=== PATIENT | male | born 1940 | race Caucasian/White ===

== ENCOUNTER 2021-03-05 08:21 | Inpatient (IN) | payer MEDICARE, BC ==
[2021-03-05] MEDS ORDERED: 50% Dextrose in Water 50 ML Syringe IVPUSH PRN (17:04)
[2021-03-05] MEDS ORDERED: oxyCODONE 5 MG Tab PO PRN (17:04)
[2021-03-05] MEDS ORDERED: Glucagon,Human Recombinant 1 MG Vial IM PRN (17:04)
[2021-03-05] MEDS ORDERED: Lactulose Soln 10 GM/15 ML 30 ML UD Cup PO PRN (17:20)
[2021-03-05] MEDS ORDERED: Insulin Aspart 100 Units/ML 3 ML Pen SUBCUT SCH (17:30)
--- NOTE | 2021-03-05 18:00 | PCM.HP.2 ---
H&P History of Present Illness - General Date of Service: 03/05/21 Admit Problem/Dx: Admission Diagnosis/Problem Admission Diagnosis/Problem Weakness Source of Information: Patient, Family, Old Records, Provider History Limitations: Reports: Altered Mental Status (some confusion but family report improved) - History of Present Illness Initial Comments - Free Text/Narative: Ed presents for swing bed admission for deconditioning and weakness after prolonged hospitalization in [facility] in [place]. 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 He also had acute kidney injury(SHAYNA)-resolved, Decompensated cirrhosis, hepatic encephalopathy- improved, acute liver injury, hyponatremia, incision infection completed antibiotic course, hypertension, possible Parkinson's disease; hyperkalemia resolved, Maculopapular rash resolved, dermatology felt was drug eruption secondary to antibiotics, TMC cream bid to affected areas, Bowel ischemia resolved. Hematology did full workup for Factor V Leiden, Antiphospholipid syndrome antibodies, Myeloproliferative panel and all tests came back negative. He has been treated for SMA thrombosis with Warfarin 4 mg daily, INR today was 2.6, 03/04 INR was 2.4. Pharmacy was dosing to keep INR goal between 2-3. He was given Rifaximin 550 mg bid in addition to Lactulose 20 g tid as needed titrating to keep 3 BM/day. His cognition improved with this and has not had ammonia level for over a week due to improved mental status. He did not have paracentesis for ascites while at [facility] as he had open abdominal incision and drain tube in place, they were getting large amounts of drainage out and drain was pulled 02/28 and then ostomy bag was placed to collect drainage, this was discontinued 03/04 and has had minimal drainage since bag removed. General surgery recommended follow up with our general surgery if needed for therapeutic paracentesis if his abdomen becomes more distended and painful. Wound care: midline abdomen open wounds x 2, Pack with saline moistened Kerlix & then cover with gauze. LUQ drain site: dressing gauze. Lifting restrictions of 15 pounds until 03/27/2021. His daughter lives in [place] so family had requested swing bed here and plan is for him to return to [place], [place] to his home once improved functional status. He is to Follow up with Dr Olmedo at in [place] on 03/12 at 11am. - Related Data Allergies/Adverse Reactions: Allergies Allergy/AdvReac Type Severity Reaction Status Date / Time Penicillins Allergy Other Verified 03/05/21 16:31 Home Medications: Home Meds Albuterol/Ipratropium [DuoNeb 3.0-0.5 MG/3 ML] 3 ml NEB Q4H 03/05/21 [History] Carbidopa/Levodopa [Sinemet 25-250 MG] 1 tab PO TID 03/05/21 [History] Docusate Sodium/Sennosides [Senokot-S] 2 each PO BID 03/05/21 [History] Furosemide [Lasix] 20 mg PO DAILY 03/05/21 [History] Insulin Aspart [Novolog Flexpen] 0 unit SQ TIDAC 03/05/21 [History] Insulin Glarg,Human.Rec.Analog [Lantus Solostar] 60 unit SUBCUT Q24H 03/05/21 [History] Lactulose [Kristalose] 20 gm PO TID PRN 03/05/21 [History] Multivitamins/Min/Ca/FA/Iron [Thera-M] 1 each PO DAILY 03/05/21 [History] Nystatin 1 applic TOP BID 03/05/21 [History] Pantoprazole Sodium [Protonix] 40 mg PO DAILY 03/05/21 [History] Rifaximin [Xifaxan] 550 mg PO BID 03/05/21 [History] Simvastatin 40 mg PO BEDTIME 03/05/21 [History] Tamsulosin [Tamsulosin 24 Hr] 0.4 mg PO PCBREAKFAST 03/05/21 [History] Triamcinolone Acetonide [Triamcinolone Acetonide 0.1% Oint] 15 gm .XX ASDIRECTED PRN 03/05/21 [History] Warfarin [Coumadin] 4 mg PO DAILY@1600 03/05/21 [History] diphenhydrAMINE [Benadryl] 25 mg PO QID 03/05/21 [History] lisinopriL [Lisinopril] 2.5 mg PO DAILY 03/05/21 [History] metFORMIN [Glucophage] 1,000 mg PO WITHDINNER 03/05/21 [History] oxyCODONE 2.5 mg PO BID PRN 03/05/21 [History] Past Medical History Respiratory History: Reports: COPD Neurological History: Reports: Parkinson's Endocrine/Metabolic History: Reports: Diabetes, Type II, Obesity/BMI 30+ - Past Surgical History Cardiovascular Surgical History: Reports: Other (See Below) Other Cardiovascular Surgeries/Procedures: had superior messenteric vein thrombosis H&P Review of Systems - Review of Systems: Review Of Systems: See Below General: Reports: Weakness. Denies: Fever, Chills HEENT: Reports: No Symptoms Pulmonary: Reports: No Symptoms Cardiovascular: Reports: No Symptoms Gastrointestinal: Reports: Abdominal Pain (mild on left side), Diarrhea, Distension, Flatus. Denies: Nausea, Vomiting Genitourinary: Reports: No Symptoms Musculoskeletal: Reports: No Symptoms Skin: Reports: Rash (improving). Denies: Jaundice Psychiatric: Reports: Confusion (mild) Neurological: Reports: Difficulty Walking, Weakness Hematologic/Lymphatic: Reports: Easy Bleeding, Easy Bruising Immunologic: Reports: Other (Drug eruption rash while at [facility]) Exam - Exam Exam: See Below - Vital Signs Vital Signs: Last Vital Signs Temp 97.8 F 03/05/21 15:48 Pulse 94 03/05/21 15:48 Resp 18 03/05/21 15:48 BP 130/46 L 03/05/21 15:48 Pulse Ox 94 L 03/05/21 15:48 Weight: 192 lb 4.8 oz - Exam General: Alert, Oriented (x3, slow to answer some questions, pleasant.), Cooperative HEENT: PERRLA, Conjunctiva Clear, EOMI, Hearing Intact, Mucosa Moist & [place]. No: Scleral Icterus Neck: Trachea Midline Lungs: Clear to Auscultation, Normal Respiratory Effort Cardiovascular: Regular Rate, Regular Rhythm GI/Abdominal Exam: Normal Bowel Sounds, Soft, Distended, Guarding, Tender (mild LUQ), Other (ABD dressing to midline incision & LUQ drain site, incision with [address] to RUQ ). No: Rigid, Rebound (Male) Exam: Deferred Rectal (Males) Exam: Deferred Extremities: Pedal Edema (1+ BLE). No: Mottled Peripheral Pulses: 1+: Posterior Tibial (L), Posterior Tibial (R), Dorsalis Pedis (L), Dorsalis Pedis (R), 2+: Radial (L), Radial (R) Skin: Warm, Dry, Intact. No: Rash Neurological: Cranial Nerves Intact, Strength Equal Bilateral, Normal Speech, Sensation Intact - Patient Data Lab Results Last 24 hrs: see outside medical records Sepsis Event Note - Focused Exam Vital Signs: Vital Signs Temp Pulse Resp BP Pulse Ox 03/05/21 15:48 97.8 F 94 18 130/46 L 94 L *Q Meaningful Use (ADM) - VTE *Q VTE Mechanical Contraindications *Q: At Risk for Falls - VTE Risk Assess *Q Each Risk Factor Represents 1 Point: History of prior major surgery less than 1 month, Swollen Legs, Current, Obesity ( BMI > 25 kg/m2) Total Score 1 Point Risk Factors: 3 Each Risk Factor Represents 2 Points: None Total Score 2 Point Risk Factors: 0 Each Risk Factor Represents 3 Points: Age 75 Years or Greater Other Thrombophilia Type: SMA thrombosis Total Score 3 Point Risk Factors: 3 - Problem List (1) Malnutrition SNOMED Code(s): 88871331 ICD Code: E46 - UNSPECIFIED PROTEIN-CALORIE MALNUTRITION Status: Acute Current Visit: Yes (2) Weakness SNOMED Code(s): 53778049 ICD Code: R53.1 - WEAKNESS Status: Acute Current Visit: Yes (3) Superior mesenteric artery thrombosis SNOMED Code(s): 739164266 ICD Code: K55.069 - ACUTE INFARCTION OF INTESTINE, PART AND EXTENT UNSPECIFIED Status: Acute Current Visit: Yes Onset Date: ~02/06/21 (4) S/P exploratory laparotomy SNOMED Code(s): 727505788, 49976246, 952048018 ICD Code: Z98.890 - OTHER SPECIFIED POSTPROCEDURAL STATES Status: Acute Current Visit: Yes Onset Date: ~02/08/21 Problem Details: 02/07 & 02/08 removed 100 cm of jejunum due to ischemia (5) S/P small bowel resection SNOMED Code(s): 781293708931752, 891876987, 221894083525404 ICD Code: Z90.49 - ACQUIRED ABSENCE OF OTHER SPECIFIED PARTS OF DIGESTIVE TRACT Status: Acute Current Visit: Yes Problem Details: 100 cm of jejunum removed secondary to ischemia (6) Ascites SNOMED Code(s): 269691882 ICD Code: R18.8 - OTHER ASCITES Status: Chronic Current Visit: Yes (7) Hepatic encephalopathy syndrome SNOMED Code(s): 33090616 ICD Code: K72.90 - HEPATIC FAILURE, UNSPECIFIED WITHOUT COMA Status: Chronic Current Visit: Yes (8) Decompensation of cirrhosis of liver SNOMED Code(s): 923083691 ICD Code: K72.90 - HEPATIC FAILURE, UNSPECIFIED WITHOUT COMA; K74.60 - UNSPECIFIED CIRRHOSIS OF LIVER Status: Chronic Current Visit: Yes (9) Parkinson disease SNOMED Code(s): 33276251 ICD Code: G20 - PARKINSON'S DISEASE Status: Suspected Current Visit: Yes (10) Hypertension SNOMED Code(s): 52684527 ICD Code: I10 - ESSENTIAL (PRIMARY) HYPERTENSION Status: Chronic Current Visit: Yes (11) Diabetes SNOMED Code(s): 20886247 ICD Code: E11.9 - TYPE 2 DIABETES MELLITUS WITHOUT COMPLICATIONS Status: Chronic Current Visit: Yes Qualifiers: Diabetes mellitus type: type 2 Diabetes mellitus senior care insulin use: with superintendent container terminal use Problem List Initiated/Reviewed/Updated: Yes Orders Last 24hrs: Active Orders 24 hr Category Date Time Status Patient Status [ADT] Routine ADT 03/05/21 15:48 Active Antiembolic Devices [RC] .Routine Care 03/05/21 17:09 Active Blood Glucose Check, Bedside [RC] QIDACANDBED Care 03/05/21 17:04 Active Height and Weight [RC] WEEKLY Care 03/05/21 15:48 Active Oxygen Therapy [RC] PRN Care 03/05/21 15:48 Active RT Aerosol Therapy [RC] ASDIRECTED Care 03/05/21 17:08 Active Up With Assistance [RC] ASDIRECTED Care 03/05/21 15:48 Active Up to Chair [RC] ASDIRECTED Care 03/05/21 15:48 Active VTE/DVT Education [RC] Per Unit Routine Care 03/05/21 15:48 Active Vaccine to be Administered/Admin Charge [RC] ASDIRECTED Care 03/05/21 17:39 Active Vital Signs [RC] PER UNIT ROUTINE Care 03/05/21 15:48 Active Wound Care [RC] DAILY Care 03/05/21 15:48 Active OT Evaluation and Treatment [CONS] Routine Cons 03/05/21 15:48 Active PT Evaluation and Treatment [CONS] Routine Cons 03/05/21 15:48 Active 2 Gram Sodium Diet [DIET] Diet 03/05/21 Dinner Active INR,PT,PROTHROMBIN TIME [COAG] DAILY Lab 03/06/21 06:00 Ordered INR,PT,PROTHROMBIN TIME [COAG] DAILY Lab 03/07/21 06:00 Ordered INR,PT,PROTHROMBIN TIME [COAG] DAILY Lab 03/08/21 06:00 Ordered INR,PT,PROTHROMBIN TIME [COAG] DAILY Lab 03/09/21 06:00 Ordered INR,PT,PROTHROMBIN TIME [COAG] DAILY Lab 03/10/21 06:00 Ordered INR,PT,PROTHROMBIN TIME [COAG] DAILY Lab 03/11/21 06:00 Ordered Albuterol/Ipratropium [DuoNeb 3.0-0.5 MG/3 ML] Med 03/05/21 17:15 Active 3 ml NEB Q4H Carbidopa/Levodopa [Sinemet 25-250 mg] Med 03/05/21 21:00 Active 1 tab PO TID Dextrose 50% in Water Med 03/05/21 17:04 Active 50 ml IVPUSH ASDIRECTED PRN Docusate Sodium/Sennosides [Senna Plus] Med 03/05/21 17:04 Active 2 tab PO BID PRN Furosemide [Lasix] Med 03/06/21 09:00 Active 20 mg PO DAILY Glucagon,Human Recombinant [GlucaGen] Med 03/05/21 17:04 Active 1 mg IM ASDIRECTED PRN Insulin Glarg,Human.Rec.Analog [LantUS Solostar] Med 03/06/21 14:00 Active 60 units SUBCUT Q24H Insulin Lispro [HumaLOG] Med 03/05/21 17:30 Active 0 unit SUBCUT TIDAC Insulin Lispro [HumaLOG] Med 03/05/21 21:00 Active See Protocol SUBCUT BEDTIME Lactulose [Cephulac] Med 03/05/21 17:20 Active 20 gm PO TID PRN Multivitamins w-Iron/Ca/FA/Min [Thera M Plus] Med 03/06/21 09:00 Active 1 tab PO DAILY Nystatin [Nystop] Med 03/05/21 21:00 Active 0 gm TOP BID Pantoprazole [ProTONIX] Med 03/06/21 06:00 Active 40 mg PO DAILY@0600 Pharmacy to Dose - InFluenza V [Pharmacy to Dose - Med 03/05/21 17:38 Once InFluenza Vaccine] 1 each IM ONETIME ONE Rifaximin [Xifaxan] Med 03/05/21 21:00 Active 550 mg PO BID Simvastatin [Zocor] Med 03/05/21 21:00 Active 40 mg PO BEDTIME Tamsulosin [Flomax] Med 03/06/21 09:00 Active 0.4 mg PO PCBREAKFAST Triamcinolone Acetonide [Triamcinolone Acetonide 0.1% Med 03/05/21 17:04 Active Oint] 0 gm TOP BID PRN Warfarin [Coumadin] Med 03/05/21 17:30 Active 4 mg PO DAILY@1600 diphenhydrAMINE [Benadryl] Med 03/05/21 17:04 Active 25 mg PO QID PRN lisinopriL [Prinivil] Med 03/06/21 09:00 Active 2.5 mg PO DAILY metFORMIN [Glucophage] Med 03/05/21 18:00 Active 1,000 mg PO WITHDINNER oxyCODONE Med 03/05/21 17:04 Active 2.5 mg PO BID PRN OSCAR Hose [Antiembolic Hose] [OM.PC] Routine Oth 03/05/21 17:09 Ordered Resuscitation Status Routine Resus Stat 03/05/21 15:48 Ordered Medication Orders Albuterol/Ipratropium (Albuterol/Ipratropium 3.0-0.5 Mg/3 Ml Neb Soln) 3 ml NEB Q4H SYLVIE Carbidopa/Levodopa (Carbidopa/Levodopa 25-250 Mg Tab) 1 tab PO TID SYLVIE Dextrose/Water (50% Dextrose In Water 50 Ml Syringe) 50 ml IVPUSH ASDIRECTED PRN PRN Reason: Hypoglycemia Diphenhydramine HCl (Diphenhydramine 25 Mg Cap) 25 mg PO QID PRN PRN Reason: Allergies Furosemide (Furosemide 20 Mg Tab) 20 mg PO DAILY SYLVIE Glucagon (Glucagon,Human Recombinant 1 Mg Vial) 1 mg IM ASDIRECTED PRN PRN Reason: Hypoglycemia Influenza Virus Vaccine (Pharmacy To Dose - Influenza Vaccine) 1 each IM ONETIME ONE Stop: 03/05/21 17:39 Insulin Glargine (Insulin Glargine,Human Rec. Analog 100 Units/Ml 3 Ml Pen) 60 units SUBCUT Q24H [facility] Insulin Human Lispro (Insulin Lispro 100 Unit/Ml 3 Ml Kwikpen) 0 unit SUBCUT BEDTIME [facility]; Protocol Insulin Human Lispro (Insulin Lispro 100 Unit/Ml 3 Ml Kwikpen) 0 unit SUBCUT TIDAC [facility]; Protocol Lactulose (Lactulose Soln 10 Gm/15 Ml 30 Ml Ud Cup) 20 gm PO TID PRN PRN Reason: IMPAIRED BRAIN FUNCTION Lisinopril (Lisinopril 2.5 Mg Tab) 2.5 mg PO DAILY [facility] Metformin HCl (Metformin 1,000 Mg Tab) 1,000 mg PO WITHDINNER [facility] Multivitamins/Minerals (Multivitamins With Iron/Calcium/Folic Acid/Minerals Tab) 1 tab PO DAILY [facility] Nystatin (Nystatin Topical Powder 15 Gm Bottle) 0 gm TOP BID [facility] Oxycodone HCl (Oxycodone 5 Mg Tab) 2.5 mg PO BID PRN PRN Reason: Pain Pantoprazole Sodium (Pantoprazole 40 Mg Tab.Cr) 40 mg PO DAILY@0600 [facility] Rifaximin (Rifaximin 550 Mg Tab) 550 mg PO BID [facility] Senna/Docusate Sodium (Docusate Sodium/Sennosides 50-8.6 Mg Tab) 2 tab PO BID PRN PRN Reason: Constipation Simvastatin (Simvastatin 40 Mg Tab) 40 mg PO BEDTIME [facility] Tamsulosin HCl (Tamsulosin 0.4 Mg Cap.Er) 0.4 mg PO PCBREAKFAST [facility] Triamcinolone Acetonide (Triamcinolone Acetonide 0.1% Oint 15 Gm Tube) 0 gm TOP BID PRN PRN Reason: Rash Warfarin Sodium (Warfarin 2 Mg Tab) 4 mg PO DAILY@1600 [facility] Assessment/Plan Comment:: 1. Admit to swing bed for rehab services for weakness, deconditioning after prolonged hospital stay 02/06 to 03/05. 2. Weakness: PT/OT evaluate & treat. 3. SMA thrombosis/s/p laparotomy: Warfarin 4 mg daily, pharmacy to dose, Daily INR. Wound care: midline abdomen open wounds x 2, Pack with saline moistened Kerlix & then cover with gauze. LUQ drain site: dressing gauze. Lifting restrictions of 15 pounds until 03/27/2021. 4. Cirrhosis/hepatic encephalopathy/ascites: Rifaximin 550 mg bid, Lactulose 20 g tid as needed titrate to 3 BM/day. Consult surgery as needed paracentesis for ascites if becomes more distended, firm, and painful. Lasix 20 mg daily. GI follow up for 03/12 at [address] [place] [address] Olmedo. 5. DM: Humalog sliding scale tid & bedtime, Lantus 60 units at bedtime. Glucose checks qidac&hs. 6. Diet: Low sodium diet on provider handoff. Was on Renal/low potassium diet while hospitalized but SHAYNA improved. 7. Activity: up to chair & with assistance. 8. DVT prophylaxis: on Warfarin, TEDS to BLE. 9. CODE STATUS: FULL. 10. Disposition: family goal for patient to go back home to [place] once he meets therapy goals. Follow up with GI in [place] on 03/12 at 11am. - Mortality Measure Prognosis:: Poor
[2021-03-05] MEDS ORDERED: Insulin Lispro 100 Unit/ML 3 ML KwikPen SUBCUT ONE (18:47)
[2021-03-05] MEDS: metFORMIN 1,000 MG Tab PO SCH (18:51)
[2021-03-05] MEDS: Albuterol/Ipratropium 3.0-0.5 MG/3 ML Neb Soln NEB SCH ×2 (18:54→20:47)
[2021-03-05] MEDS: Insulin Lispro 100 Unit/ML 3 ML KwikPen SUBCUT SCH ×2 (18:55→20:37)
[2021-03-05] MEDS: Warfarin 2 MG Tab PO SCH (19:13)
[2021-03-05] MEDS: Nystatin Topical Powder 15 GM Bottle TOP SCH (20:43)
[2021-03-05] MEDS: Rifaximin 550 MG Tab PO SCH (20:44)
[2021-03-05] MEDS: Carbidopa/Levodopa 25-250 MG Tab PO SCH (20:44)
[2021-03-05] MEDS: Simvastatin 40 MG Tab PO SCH (20:46)
[2021-03-06] MEDS: Albuterol/Ipratropium 3.0-0.5 MG/3 ML Neb Soln NEB SCH ×6 (01:38→21:24)
[2021-03-06] MEDS: Pantoprazole 40 MG Tab.CR PO SCH (05:35)
[2021-03-06] MEDS: Insulin Lispro 100 Unit/ML 3 ML KwikPen SUBCUT SCH ×4 (08:33→21:21)
[2021-03-06] MEDS: Multivitamins with Iron/Calcium/Folic Acid/Minerals Tab PO SCH (10:19)
[2021-03-06] MEDS: Tamsulosin 0.4 MG Cap.ER PO SCH (10:20)
[2021-03-06] MEDS: Furosemide 20 MG Tab PO SCH (10:20)
[2021-03-06] MEDS: Nystatin Topical Powder 15 GM Bottle TOP SCH ×2 (10:21→21:24)
[2021-03-06] MEDS: Rifaximin 550 MG Tab PO SCH ×2 (10:21→21:23)
[2021-03-06] MEDS: Carbidopa/Levodopa 25-250 MG Tab PO SCH ×3 (10:21→21:24)
[2021-03-06] MEDS: Lisinopril 2.5 MG Tab PO SCH (10:26)
[2021-03-06] MEDS: Warfarin 2 MG Tab PO SCH (16:02)
[2021-03-06] MEDS ORDERED: Insulin Glargine,Human Rec. Analog 100 Units/ML 3 ML Pen SUBCUT ONE (16:07)
[2021-03-06] MEDS: Insulin Glargine,Human Rec. Analog 100 Units/ML 3 ML Pen SUBCUT SCH (16:23)
[2021-03-06] MEDS: metFORMIN 1,000 MG Tab PO SCH (17:45)
[2021-03-06] MEDS: Simvastatin 40 MG Tab PO SCH (21:23)
[2021-03-06] MEDS: Melatonin 3 MG Tab PO SCH (21:30)
[2021-03-07] MEDS: Albuterol/Ipratropium 3.0-0.5 MG/3 ML Neb Soln NEB SCH ×6 (01:46→20:17)
[2021-03-07] MEDS: Pantoprazole 40 MG Tab.CR PO SCH (05:00)
[2021-03-07] MEDS: Insulin Lispro 100 Unit/ML 3 ML KwikPen SUBCUT SCH ×4 (09:33→20:14)
[2021-03-07] MEDS: Multivitamins with Iron/Calcium/Folic Acid/Minerals Tab PO SCH (09:52)
[2021-03-07] MEDS: Carbidopa/Levodopa 25-250 MG Tab PO SCH ×3 (09:53→20:16)
[2021-03-07] MEDS: Rifaximin 550 MG Tab PO SCH ×2 (09:53→20:17)
[2021-03-07] MEDS: Lisinopril 2.5 MG Tab PO SCH (09:54)
[2021-03-07] MEDS: Nystatin Topical Powder 15 GM Bottle TOP SCH ×2 (09:55→20:16)
[2021-03-07] MEDS: Tamsulosin 0.4 MG Cap.ER PO SCH (09:57)
[2021-03-07] MEDS: Furosemide 20 MG Tab PO SCH (09:57)
[2021-03-07] MEDS: Insulin Glargine,Human Rec. Analog 100 Units/ML 3 ML Pen SUBCUT SCH (14:11)
[2021-03-07] MEDS: diphenhydrAMINE 25 MG Cap PO PRN (15:57)
[2021-03-07] MEDS: Warfarin 2 MG Tab PO SCH (15:57)
[2021-03-07] MEDS: metFORMIN 1,000 MG Tab PO SCH (18:13)
[2021-03-07] MEDS: Simvastatin 40 MG Tab PO SCH (20:17)
[2021-03-07] MEDS: Melatonin 3 MG Tab PO SCH (20:22)
[2021-03-08] MEDS: Albuterol/Ipratropium 3.0-0.5 MG/3 ML Neb Soln NEB SCH ×6 (00:30→20:00)
[2021-03-08] MEDS: Pantoprazole 40 MG Tab.CR PO SCH (05:19)
[2021-03-08] MEDS: Insulin Lispro 100 Unit/ML 3 ML KwikPen SUBCUT SCH ×4 (08:08→22:08)
[2021-03-08] MEDS: Lisinopril 2.5 MG Tab PO SCH (09:10)
[2021-03-08] MEDS: Tamsulosin 0.4 MG Cap.ER PO SCH (09:10)
[2021-03-08] MEDS: Nystatin Topical Powder 15 GM Bottle TOP SCH ×2 (09:10→20:10)
[2021-03-08] MEDS: Furosemide 20 MG Tab PO SCH (09:10)
[2021-03-08] MEDS: Multivitamins with Iron/Calcium/Folic Acid/Minerals Tab PO SCH (09:11)
[2021-03-08] MEDS: Rifaximin 550 MG Tab PO SCH ×2 (09:11→20:11)
[2021-03-08] MEDS: Carbidopa/Levodopa 25-250 MG Tab PO SCH ×3 (09:11→20:09)
[2021-03-08] MEDS ORDERED: Warfarin Sliding Scale PO SCH (16:00)
[2021-03-08] MEDS: Warfarin 2 MG Tab PO SCH (16:55)
[2021-03-08] MEDS: metFORMIN 1,000 MG Tab PO SCH (18:03)
[2021-03-08] MEDS: Simvastatin 40 MG Tab PO SCH (20:10)
[2021-03-08] MEDS: Melatonin 3 MG Tab PO SCH (20:11)
[2021-03-08] MEDS ORDERED: Insulin Glargine,Human Rec. Analog 100 Units/ML 3 ML Pen SUBCUT SCH ×2 (21:00)
[2021-03-08] MEDS ORDERED: Insulin Glargine,Hum.Rec.Anlog 100 UNIT/ML 3 ML Pen SUBCUT ONE (22:40)
[2021-03-08] MEDS ORDERED: Insulin Glargine,Hum.Rec.Anlog 100 UNIT/ML 3 ML Pen SUBCUT SCH (22:45)
[2021-03-09] MEDS: Pantoprazole 40 MG Tab.CR PO SCH (06:19)
[2021-03-09] MEDS: Albuterol/Ipratropium 3.0-0.5 MG/3 ML Neb Soln NEB SCH ×4 (06:23→20:34)
[2021-03-09] MEDS ORDERED: Lactulose Soln 10 GM/15 ML 30 ML UD Cup PO SCH (09:00)
[2021-03-09] MEDS: Insulin Lispro 100 Unit/ML 3 ML KwikPen SUBCUT SCH ×3 (09:36→17:22)
[2021-03-09] MEDS: Tamsulosin 0.4 MG Cap.ER PO SCH (09:36)
[2021-03-09] MEDS: Lactulose Soln 10 GM/15 ML 30 ML UD Cup PO SCH ×3 (09:36→20:34)
[2021-03-09] MEDS: Multivitamins with Iron/Calcium/Folic Acid/Minerals Tab PO SCH (09:37)
[2021-03-09] MEDS: Furosemide 20 MG Tab PO SCH (09:37)
[2021-03-09] MEDS: Lisinopril 2.5 MG Tab PO SCH (09:37)
[2021-03-09] MEDS: Carbidopa/Levodopa 25-250 MG Tab PO SCH ×3 (09:38→20:37)
[2021-03-09] MEDS: Nystatin Topical Powder 15 GM Bottle TOP SCH ×2 (09:38→20:43)
[2021-03-09] MEDS: Rifaximin 550 MG Tab PO SCH ×2 (09:38→20:37)
[2021-03-09] MEDS: Warfarin 2 MG Tab PO SCH (16:58)
[2021-03-09] MEDS: metFORMIN 1,000 MG Tab PO SCH (17:59)
[2021-03-09] MEDS: Melatonin 3 MG Tab PO SCH (20:35)
[2021-03-09] MEDS: Simvastatin 40 MG Tab PO SCH (20:38)
[2021-03-09] MEDS ORDERED: Insulin Glargine,Hum.Rec.Anlog 100 UNIT/ML 3 ML Pen SUBCUT SCH (21:00)
[2021-03-10] MEDS: Albuterol/Ipratropium 3.0-0.5 MG/3 ML Neb Soln NEB SCH ×4 (06:24→20:57)
[2021-03-10] MEDS: Pantoprazole 40 MG Tab.CR PO SCH (06:24)
[2021-03-10] MEDS: Insulin Lispro 100 Unit/ML 3 ML KwikPen SUBCUT SCH ×3 (06:29→17:32)
[2021-03-10] MEDS: Lactulose Soln 10 GM/15 ML 30 ML UD Cup PO SCH ×3 (08:09→20:58)
[2021-03-10] MEDS: Nystatin Topical Powder 15 GM Bottle TOP SCH ×2 (08:11→20:57)
[2021-03-10] MEDS: Furosemide 20 MG Tab PO SCH (08:11)
[2021-03-10] MEDS: Tamsulosin 0.4 MG Cap.ER PO SCH (08:11)
[2021-03-10] MEDS: Lisinopril 2.5 MG Tab PO SCH (08:12)
[2021-03-10] MEDS: Carbidopa/Levodopa 25-250 MG Tab PO SCH ×3 (08:12→20:57)
[2021-03-10] MEDS: Rifaximin 550 MG Tab PO SCH ×2 (08:13→20:59)
[2021-03-10] MEDS: Multivitamins with Iron/Calcium/Folic Acid/Minerals Tab PO SCH (08:13)
[2021-03-10] MEDS: diphenhydrAMINE 25 MG Cap PO PRN (15:26)
[2021-03-10] MEDS ORDERED: Warfarin 2 MG Tab PO ONE (16:00)
[2021-03-10] MEDS: metFORMIN 1,000 MG Tab PO SCH (17:42)
[2021-03-10] MEDS: Melatonin 3 MG Tab PO SCH (20:57)
[2021-03-10] MEDS: Simvastatin 40 MG Tab PO SCH (20:58)
[2021-03-10] MEDS ORDERED: Insulin Glargine,Hum.Rec.Anlog 100 UNIT/ML 3 ML Pen SUBCUT SCH (21:00)
[2021-03-11] MEDS: Pantoprazole 40 MG Tab.CR PO SCH (05:02)
[2021-03-11] MEDS: Albuterol/Ipratropium 3.0-0.5 MG/3 ML Neb Soln NEB SCH ×4 (06:13→20:02)
[2021-03-11] MEDS: Insulin Lispro 100 Unit/ML 3 ML KwikPen SUBCUT SCH ×3 (06:30→17:30)
[2021-03-11] MEDS: Furosemide 20 MG Tab PO SCH (08:24)
[2021-03-11] MEDS: Multivitamins with Iron/Calcium/Folic Acid/Minerals Tab PO SCH (08:24)
[2021-03-11] MEDS: Lisinopril 2.5 MG Tab PO SCH (08:24)
[2021-03-11] MEDS: Carbidopa/Levodopa 25-250 MG Tab PO SCH ×3 (08:24→20:02)
[2021-03-11] MEDS: Rifaximin 550 MG Tab PO SCH ×2 (08:25→20:03)
[2021-03-11] MEDS: Tamsulosin 0.4 MG Cap.ER PO SCH (08:26)
[2021-03-11] MEDS: Triamcinolone Acetonide 0.1% Oint 15 GM Tube TOP PRN (08:27)
[2021-03-11] MEDS: Lactulose Soln 10 GM/15 ML 30 ML UD Cup PO SCH ×3 (08:27→20:02)
[2021-03-11] MEDS: Nystatin Topical Powder 15 GM Bottle TOP SCH ×2 (08:30→20:03)
[2021-03-11] MEDS: diphenhydrAMINE 25 MG Cap PO PRN (08:37)
[2021-03-11] MEDS: Warfarin 2 MG Tab PO SCH (17:26)
[2021-03-11] MEDS: metFORMIN 1,000 MG Tab PO SCH (18:58)
[2021-03-11] MEDS: Insulin Glargine,Hum.Rec.Anlog 100 UNIT/ML 3 ML Pen SUBCUT SCH (20:00)
[2021-03-11] MEDS: Melatonin 3 MG Tab PO SCH (20:02)
[2021-03-11] MEDS: Simvastatin 40 MG Tab PO SCH (20:03)
[2021-03-12] MEDS: Pantoprazole 40 MG Tab.CR PO SCH (06:30)
[2021-03-12] MEDS: Albuterol/Ipratropium 3.0-0.5 MG/3 ML Neb Soln NEB SCH ×4 (06:30→20:34)
[2021-03-12] MEDS: Insulin Lispro 100 Unit/ML 3 ML KwikPen SUBCUT SCH ×3 (06:31→17:40)
[2021-03-12] MEDS: Furosemide 20 MG Tab PO SCH (08:08)
[2021-03-12] MEDS: Lactulose Soln 10 GM/15 ML 30 ML UD Cup PO SCH ×3 (08:08→20:46)
[2021-03-12] MEDS: Nystatin Topical Powder 15 GM Bottle TOP SCH ×2 (08:08→20:34)
[2021-03-12] MEDS: Tamsulosin 0.4 MG Cap.ER PO SCH (08:08)
[2021-03-12] MEDS: Carbidopa/Levodopa 25-250 MG Tab PO SCH ×3 (08:10→20:34)
[2021-03-12] MEDS: Lisinopril 2.5 MG Tab PO SCH (08:10)
[2021-03-12] MEDS: Multivitamins with Iron/Calcium/Folic Acid/Minerals Tab PO SCH (08:10)
[2021-03-12] MEDS: Triamcinolone Acetonide 0.1% Oint 15 GM Tube TOP PRN (08:11)
[2021-03-12] MEDS: Rifaximin 550 MG Tab PO SCH ×2 (08:11→20:34)
--- NOTE | 2021-03-12 09:06 | PCM.PN ---
- General Info Date of Service: 03/12/21 Subjective Update: Ed is doing well, blood sugars have been last few mornings, decreased Semglee to 42 units at bedtime and fasting BS this morning was 95. Daily wound packing for wound dehiscence midline. INR has been staying within goal range. He sees GI today in [place]. Ammonia level was 72. Speech therapy did MOCA testing on Monday and was , some due to 4th grade education. Family questioned his hearing, that would have to be done as outpatient set up by family as we don't have audiology in town. Had 2 stools yesterday and 1 so far today. Functional Status: Reports: Pain Controlled, Tolerating Diet, Ambulating, Urinating. Denies: New Symptoms - Patient Data Vitals - Most Recent: Last Vital Signs Temp 97.8 F 03/12/21 07:45 Pulse 102 H 03/12/21 07:45 Resp 20 03/12/21 07:45 BP 140/59 L 03/12/21 08:10 Pulse Ox 94 L 03/12/21 07:45 Weight - Most Recent: 194 lb 9.6 oz Lab Results Last 24 Hours: Laboratory Results - last 24 hr 03/10/21 03/10/21 03/11/21 Range/Units 11: 17:01 11:15 PT (9.0-11.1) sec INR (1.00-1.24) POC Glucose 133 H 145 H 149 H (80-116) mg/dL 03/11/21 03/11/21 03/12/21 Range/Units 17:20 20:16 06:22 PT 26.4 H (9.0-11.1) sec INR 2.60 H (1.00-1.24) POC Glucose 187 H 167 H (80-116) mg/dL 03/12/21 Range/Units 06:24 PT (9.0-11.1) sec INR (1.00-1.24) POC Glucose 95 (80-116) mg/dL Med Orders - Current: Current Medications Albuterol/Ipratropium (Albuterol/Ipratropium 3.0-0.5 Mg/3 Ml Neb Soln) 3 ml NEB QIDRT SYLVIE Last Admin: 03/12/21 06:30 Dose: 3 ml Documented by: Carbidopa/Levodopa (Carbidopa/Levodopa 25-250 Mg Tab) 1 tab PO TID [facility] Last Admin: 03/12/21 08:10 Dose: 1 tab Documented by: Dextrose/Water (50% Dextrose In Water 50 Ml Syringe) 50 ml IVPUSH ASDIRECTED PRN PRN Reason: Hypoglycemia Diphenhydramine HCl (Diphenhydramine 25 Mg Cap) 25 mg PO QID PRN PRN Reason: Allergies Last Admin: 03/11/21 08:37 Dose: 25 mg Documented by: Furosemide (Furosemide 20 Mg Tab) 20 mg PO DAILY [facility] Last Admin: 03/12/21 08:08 Dose: 20 mg Documented by: Glucagon (Glucagon,Human Recombinant 1 Mg Vial) 1 mg IM ASDIRECTED PRN PRN Reason: Hypoglycemia Insulin Glargine (Insulin Glargine,Hum.Rec.Anlog 100 Unit/Ml 3 Ml Pen) 42 unit SUBCUT BEDTIME [facility] Last Admin: 03/11/21 20:00 Dose: 42 units Documented by: Insulin Human Lispro (Insulin Lispro 100 Unit/Ml 3 Ml Kwikpen) 0 unit SUBCUT TIDAC [facility]; Protocol Last Admin: 03/12/21 06:31 Dose: Not Given Documented by: Lactulose (Lactulose Soln 10 Gm/15 Ml 30 Ml Ud Cup) 20 gm PO TID [facility] Last Admin: 03/12/21 08:08 Dose: 20 gm Documented by: Lisinopril (Lisinopril 2.5 Mg Tab) 2.5 mg PO DAILY [facility] Last Admin: 03/12/21 08:10 Dose: 2.5 mg Documented by: Melatonin (Melatonin 3 Mg Tab) 6 mg PO BEDTIME [facility] Last Admin: 03/11/21 20:02 Dose: 6 mg Documented by: Metformin HCl (Metformin 1,000 Mg Tab) 1,000 mg PO WITHDINNER [facility] Last Admin: 03/11/21 18:58 Dose: 1,000 mg Documented by: Multivitamins/Minerals (Multivitamins With Iron/Calcium/Folic Acid/Minerals Tab) 1 tab PO DAILY [facility] Last Admin: 03/12/21 08:10 Dose: 1 tab Documented by: Nystatin (Nystatin Topical Powder 15 Gm Bottle) 0 gm TOP BID [facility] Last Admin: 03/12/21 08:08 Dose: Not Given Documented by: Oxycodone HCl (Oxycodone 5 Mg Tab) 2.5 mg PO BID PRN PRN Reason: Pain Pantoprazole Sodium (Pantoprazole 40 Mg Tab.Cr) 40 mg PO DAILY@0600 [facility] Last Admin: 03/12/21 06:30 Dose: 40 mg Documented by: Rifaximin (Rifaximin 550 Mg Tab) 550 mg PO BID [facility] Last Admin: 03/12/21 08:11 Dose: 550 mg Documented by: Senna/Docusate Sodium (Docusate Sodium/Sennosides 50-8.6 Mg Tab) 2 tab PO BID PRN PRN Reason: Constipation Simvastatin (Simvastatin 40 Mg Tab) 40 mg PO BEDTIME [facility] Last Admin: 03/11/21 20:03 Dose: 40 mg Documented by: Tamsulosin HCl (Tamsulosin 0.4 Mg Cap.Er) 0.4 mg PO PCBREAKFAST [facility] Last Admin: 03/12/21 08:08 Dose: 0.4 mg Documented by: Triamcinolone Acetonide (Triamcinolone Acetonide 0.1% Oint 15 Gm Tube) 0 gm TOP BID PRN PRN Reason: Rash Last Admin: 03/12/21 08:11 Dose: 1 applic Documented by: Warfarin Sodium (Warfarin Sliding Scale) 1 each PO 1600 [facility] Warfarin Sodium (Warfarin 2 Mg Tab) 2 mg PO ONETIME ONE Stop: 03/12/21 16:01 Warfarin Sodium (Warfarin 2 Mg Tab) 4 mg PO SuMoTuThFrSa@1600 [facility] Discontinued Medications Albuterol/Ipratropium (Albuterol/Ipratropium 3.0-0.5 Mg/3 Ml Neb Soln) 3 ml NEB Q4H [facility] Last Admin: 03/08/21 09:11 Dose: 3 ml Documented by: Influenza Virus Vaccine (Flu Vacc [id number](6mos Up)/Pf 60 Mcg/0.5 Ml Syringe) 60 mcg IM .ONCE ONE Stop: 03/06/21 10:01 Insulin Aspart (Insulin Aspart 100 Units/Ml 3 Ml Pen) 0 unit SUBCUT TIDAC [facility]; Protocol Insulin Glargine (Insulin Glargine,Human Rec. Analog 100 Units/Ml 3 Ml Pen) 60 units SUBCUT Q24H [facility] Last Admin: 03/07/21 14:11 Dose: 60 unit Documented by: Insulin Glargine (Insulin Glargine,Human Rec. Analog 100 Units/Ml 3 Ml Pen) 55 units SUBCUT BEDTIME [facility] Last Admin: 03/08/21 22:32 Dose: Not Given Documented by: Insulin Glargine (Insulin Glargine,Hum.Rec.Anlog 100 Unit/Ml 3 Ml Pen) 55 unit SUBCUT BEDTIME [facility] Last Admin: 03/08/21 22:44 Dose: 55 units Documented by: Insulin Glargine (Insulin Glargine,Hum.Rec.Anlog 100 Unit/Ml 3 Ml Pen) 50 unit SUBCUT BEDTIME [facility] Last Admin: 03/09/21 20:43 Dose: 50 units Documented by: Insulin Glargine (Insulin Glargine,Hum.Rec.Anlog 100 Unit/Ml 3 Ml Pen) 45 unit SUBCUT BEDTIME [facility] Last Admin: 03/10/21 21:13 Dose: 45 units Documented by: Insulin Human Lispro (Insulin Lispro 100 Unit/Ml 3 Ml Kwikpen) 0 unit SUBCUT BEDTIME [facility]; Protocol Last Admin: 03/08/21 22:08 Dose: Not Given Documented by: Lactulose (Lactulose Soln 10 Gm/15 Ml 30 Ml Ud Cup) 20 gm PO TID PRN PRN Reason: IMPAIRED BRAIN FUNCTION Lactulose (Lactulose Soln 10 Gm/15 Ml 30 Ml Ud Cup) 20 gm PO DAILY [facility] Warfarin Sodium (Warfarin 2 Mg Tab) 4 mg PO DAILY@1600 [facility] Last Admin: 03/11/21 17:26 Dose: 4 mg Documented by: Warfarin Sodium (Warfarin 2 Mg Tab) 2 mg PO ONETIME ONE Stop: 03/10/21 16:01 Last Admin: 03/10/21 15:26 Dose: 2 mg Documented by: - Exam General: Alert, Oriented (person, place), Cooperative, No Acute Distress Lungs: Clear to Auscultation, Normal Respiratory Effort, Decreased Breath Sounds (bibasilar). No: Crackles, Wheezing Cardiovascular: Regular Rate, Regular Rhythm GI/Abdominal Exam: Normal Bowel Sounds, Soft, Non-Tender, Distended (Male) Exam: Deferred Peripheral Pulses: 2+: Radial (L), Radial (R) Wound/Incisions: Dressing Dry and Intact Neurological: Other (tremors hand & feet) - Patient Data Lab Results Last 24 hrs: Laboratory Results - last 24 hr 1203/10/21 03/11/21 Range/Units 11:21 17:01 11:15 PT (9.0-11.1) sec INR (1.00-1.24) POC Glucose 133 H 145 H 149 H (80-116) mg/dL 03/11/21 03/11/21 03/12/21 Range/Units 17:20 20:16 06:22 PT 26.4 H (9.0-11.1) sec INR 2.60 H (1.00-1.24) POC Glucose 187 H 167 H (80-116) mg/dL 03/12/21 Range/Units 06:24 PT (9.0-11.1) sec INR (1.00-1.24) POC Glucose 95 (80-116) mg/dL Sepsis Event Note - Evaluation Sepsis Screening Result: No Definite Risk - Focused Exam Vital Signs: Vital Signs Temp Pulse Resp BP BP Pulse Ox 03/12/21 08:10 140/59 L 03/12/21 07:45 97.8 F 102 H 20 140/59 L 94 L - Problem List & Annotations (1) Weakness SNOMED Code(s): 68831687 Code(s): R53.1 - WEAKNESS Status: Acute Current Visit: Yes (2) Superior mesenteric artery thrombosis SNOMED Code(s): 254925160 Code(s): K55.069 - ACUTE INFARCTION OF INTESTINE, PART AND EXTENT UNSPECIFIED Status: Acute Current Visit: Yes Onset Date: ~02/06/21 (3) Wound dehiscence, surgical SNOMED Code(s): 445026459 Code(s): T81.31XA - DISRUPTION OF EXTERNAL OPERATION (SURGICAL) WOUND, NEC, INIT Status: Acute Current Visit: Yes Qualifiers: Encounter type: subsequent encounter Qualified Code(s): T81.31XD - Disruption of external operation (surgical) wound, not elsewhere classified, subsequent encounter Annotation/Comment:: Daily wet to dry packing of wound. No signs of infection. Keep BS in tight control. (4) Malnutrition SNOMED Code(s): 61979155 Code(s): E46 - UNSPECIFIED PROTEIN-CALORIE MALNUTRITION Status: Acute Current Visit: Yes (5) S/P exploratory laparotomy SNOMED Code(s): 391675350, 67004784, 969415813 Code(s): Z98.890 - OTHER SPECIFIED POSTPROCEDURAL STATES Status: Acute Current Visit: Yes Onset Date: ~02/08/21 Annotation/Comment:: 02/07 & 02/08 removed 100 cm of jejunum due to ischemia (6) S/P small bowel resection SNOMED Code(s): 699217547840064, 347631304, 716708836547101 Code(s): Z90.49 - ACQUIRED ABSENCE OF OTHER SPECIFIED PARTS OF DIGESTIVE TRACT Status: Acute Current Visit: Yes Annotation/Comment:: 100 cm of jejunum removed secondary to ischemia (7) Ascites SNOMED Code(s): 877990217 Code(s): R18.8 - OTHER ASCITES Status: Chronic Current Visit: Yes Qualifiers: 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 Qualified Code(s): K70.31 - Alcoholic cirrhosis of liver with ascites Annotation/Comment:: Paracentesis as needed (8) Hepatic encephalopathy syndrome SNOMED Code(s): 72676553 Code(s): K72.90 - HEPATIC FAILURE, UNSPECIFIED WITHOUT COMA Status: Chronic Current Visit: Yes (9) Decompensation of cirrhosis of liver SNOMED Code(s): 267560240 Code(s): K72.90 - HEPATIC FAILURE, UNSPECIFIED WITHOUT COMA; K74.60 - UNSPECIFIED CIRRHOSIS OF LIVER Status: Chronic Current Visit: Yes (10) Parkinson disease SNOMED Code(s): 70092161 Code(s): G20 - PARKINSON'S DISEASE Status: Suspected Current Visit: Yes (11) Hypertension SNOMED Code(s): 20427372 Code(s): I10 - ESSENTIAL (PRIMARY) HYPERTENSION Status: Chronic Current Visit: Yes (12) Diabetes SNOMED Code(s): 01879099 Code(s): E11.9 - TYPE 2 DIABETES MELLITUS WITHOUT COMPLICATIONS Status: Chronic Current Visit: Yes Qualifiers: Diabetes mellitus type: type 2 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 Weakness/deconditioning: PT/OT continue, more deconditioned so will probably meet OT goals soon but continue with PT. 2. SMA thrombosis/s/p laparotomy: Warfarin 4 mg daily, pharmacy to dose, Daily INR. Wound care: midline abdomen open wounds x 2, Pack with saline moistened Kerlix & then cover with gauze. LUQ drain site: dressing gauze. Lifting restrictions of 15 pounds until 03/27/2021. 3. Cirrhosis/hepatic encephalopathy/ascites/malnutrition: Rifaximin 550 mg bid, Lactulose 20 g tid as needed titrate to 3 BM/day. Consult surgery as needed paracentesis for ascites if becomes more distended, firm, and painful. Lasix 20 mg daily. GI follow up for today at [address] in [place] [address] Olmedo. 4. DM: Humalog sliding scale tid & bedtime, Semglee 42 units at bedtime. Glucose checks qidac&hs. 5. Cognitive deficits: multifactorial: MOCA 14/30. Should not be driving, advised family of this. They would like his hearing checked which would have to be set up by family and taken to appt as we do not have audiology services here or in town. Can make simple decisions and safety but with his medications would be better in assisted living where he can have medication management, assistance with wound care and regular meals to help improve his nutrition. 6. Disposition: Family is looking at [facility] for transition from swing bed as he has no family support in [place], on many complicated medications and wound care, agree with Therapy that he would be safer to discharge to assisted living facility rather than home with services.
[2021-03-12] MEDS: Warfarin 2 MG Tab PO SCH (16:09)
[2021-03-12] MEDS: metFORMIN 1,000 MG Tab PO SCH (18:05)
[2021-03-12] MEDS: Simvastatin 40 MG Tab PO SCH (20:33)
[2021-03-12] MEDS: Melatonin 3 MG Tab PO SCH (20:33)
[2021-03-12] MEDS: Insulin Glargine,Hum.Rec.Anlog 100 UNIT/ML 3 ML Pen SUBCUT SCH (20:38)
[2021-03-13] MEDS: Pantoprazole 40 MG Tab.CR PO SCH (06:39)
[2021-03-13] MEDS: Albuterol/Ipratropium 3.0-0.5 MG/3 ML Neb Soln NEB SCH ×4 (06:39→20:23)
[2021-03-13] MEDS: Insulin Lispro 100 Unit/ML 3 ML KwikPen SUBCUT SCH ×3 (08:04→17:58)
[2021-03-13] MEDS: Lactulose Soln 10 GM/15 ML 30 ML UD Cup PO SCH ×3 (08:08→20:31)
[2021-03-13] MEDS: Tamsulosin 0.4 MG Cap.ER PO SCH (08:09)
[2021-03-13] MEDS: Furosemide 20 MG Tab PO SCH (08:09)
[2021-03-13] MEDS: Lisinopril 2.5 MG Tab PO SCH (08:10)
[2021-03-13] MEDS: Rifaximin 550 MG Tab PO SCH ×2 (08:11→20:32)
[2021-03-13] MEDS: Carbidopa/Levodopa 25-250 MG Tab PO SCH ×3 (08:11→20:31)
[2021-03-13] MEDS: Multivitamins with Iron/Calcium/Folic Acid/Minerals Tab PO SCH (08:11)
[2021-03-13] MEDS: Nystatin Topical Powder 15 GM Bottle TOP SCH ×2 (09:30→20:38)
[2021-03-13] MEDS: Warfarin 2 MG Tab PO SCH (16:31)
[2021-03-13] MEDS: metFORMIN 1,000 MG Tab PO SCH (18:01)
[2021-03-13] MEDS: Melatonin 3 MG Tab PO SCH (20:31)
[2021-03-13] MEDS: Simvastatin 40 MG Tab PO SCH (20:32)
[2021-03-13] MEDS ORDERED: Insulin Glargine,Hum.Rec.Anlog 100 UNIT/ML 3 ML Pen SUBCUT SCH (21:00)
[2021-03-14] MEDS: Pantoprazole 40 MG Tab.CR PO SCH (05:58)
[2021-03-14] MEDS: Albuterol/Ipratropium 3.0-0.5 MG/3 ML Neb Soln NEB SCH ×3 (06:11→20:15)
[2021-03-14] MEDS: Insulin Lispro 100 Unit/ML 3 ML KwikPen SUBCUT SCH ×3 (08:01→17:10)
[2021-03-14] MEDS: Tamsulosin 0.4 MG Cap.ER PO SCH (08:03)
[2021-03-14] MEDS: Lactulose Soln 10 GM/15 ML 30 ML UD Cup PO SCH ×3 (08:03→20:17)
[2021-03-14] MEDS: Triamcinolone Acetonide 0.1% Oint 15 GM Tube TOP PRN ×2 (08:04→08:10)
[2021-03-14] MEDS: Furosemide 20 MG Tab PO SCH (08:04)
[2021-03-14] MEDS: Lisinopril 2.5 MG Tab PO SCH (08:06)
[2021-03-14] MEDS: Carbidopa/Levodopa 25-250 MG Tab PO SCH ×3 (08:07→20:14)
[2021-03-14] MEDS: Multivitamins with Iron/Calcium/Folic Acid/Minerals Tab PO SCH (08:07)
[2021-03-14] MEDS: Rifaximin 550 MG Tab PO SCH ×2 (08:08→20:15)
[2021-03-14] MEDS: Nystatin Topical Powder 15 GM Bottle TOP SCH (08:09)
[2021-03-14] MEDS ORDERED: Albuterol/Ipratropium 3.0-0.5 MG/3 ML Neb Soln NEB PRN (15:49)
[2021-03-14] MEDS: Warfarin 2 MG Tab PO SCH (16:02)
[2021-03-14] MEDS: metFORMIN 1,000 MG Tab PO SCH (17:45)
[2021-03-14] MEDS: Melatonin 3 MG Tab PO SCH (20:14)
[2021-03-14] MEDS: Simvastatin 40 MG Tab PO SCH (20:15)
[2021-03-15] MEDS: Pantoprazole 40 MG Tab.CR PO SCH (06:00)
[2021-03-15] MEDS: Albuterol/Ipratropium 3.0-0.5 MG/3 ML Neb Soln NEB SCH ×2 (06:17→20:46)
[2021-03-15] MEDS: Insulin Lispro 100 Unit/ML 3 ML KwikPen SUBCUT SCH ×3 (07:46→17:46)
[2021-03-15] MEDS: Tamsulosin 0.4 MG Cap.ER PO SCH (09:37)
[2021-03-15] MEDS: Furosemide 20 MG Tab PO SCH (09:37)
[2021-03-15] MEDS: Rifaximin 550 MG Tab PO SCH ×2 (09:38→20:09)
[2021-03-15] MEDS: Carbidopa/Levodopa 25-250 MG Tab PO SCH ×3 (09:38→20:09)
[2021-03-15] MEDS: Lisinopril 2.5 MG Tab PO SCH (09:38)
[2021-03-15] MEDS: Lactulose Soln 10 GM/15 ML 30 ML UD Cup PO SCH ×3 (09:39→20:08)
--- NOTE | 2021-03-15 12:57 | CONS ---
DATE OF CONSULTATION: 03/15/2021 This 80-year-old male was admitted to the swing bed with a wound infection post laparotomy. 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 This was performed at [facility] in [place]. 1 or 2 days later, he underwent a second-look laparotomy. The patient has been making progress since those surgeries now over a month ago and was transferred here for swing bed care because of wound infection. The patient still has suture material in place where a drain had been previously located and also some hermila in the midportion of his wound. The patient does have some known ascites and abdominal distention secondary to that, but there has been no drainage through the incision or through the drain sites. Examination today shows healing drain sites in the right and left upper quadrants of the abdomen. The drains have been removed, but there was a small suture remaining in the right upper quadrant drain site and this suture was removed today. Also, examination of his midline wound was carried out. Superiorly and inferiorly the wound is open down to the underlying fascia. These areas are being packed with moist gauze on a daily basis. The underlying fascia appears intact with visible fascial sutures present. There was good granulation tissue in the depths of these wounds with minimal necrotic tissue. In the skin bridge between these 2 open areas, multiple hermila were still present. The skin edges here are well apposed. They appeared to be completely healed. I do not see any indication of skin breakdown at that location. One-half of these visible hermila were removed today with the plan that the wound will be observed over the next 2 to 3 days to be sure that there was no increased tension on the incision, and if it remains clean, then the remaining sutures can be removed. /[id number] SHARAN/NEIL TODD
[2021-03-15] MEDS: Multivitamins with Iron/Calcium/Folic Acid/Minerals Tab PO SCH (15:09)
[2021-03-15] MEDS: Warfarin 2 MG Tab PO SCH (15:14)
[2021-03-15] MEDS: metFORMIN 1,000 MG Tab PO SCH (17:45)
[2021-03-15] MEDS: Melatonin 3 MG Tab PO SCH (20:08)
[2021-03-15] MEDS: Simvastatin 40 MG Tab PO SCH (20:09)
[2021-03-15] MEDS: Insulin Glargine,Hum.Rec.Anlog 100 UNIT/ML 3 ML Pen SUBCUT SCH (21:30)
[2021-03-16] MEDS: Albuterol/Ipratropium 3.0-0.5 MG/3 ML Neb Soln NEB SCH ×2 (06:01→20:48)
[2021-03-16] MEDS: Pantoprazole 40 MG Tab.CR PO SCH (06:01)
[2021-03-16] MEDS: Insulin Lispro 100 Unit/ML 3 ML KwikPen SUBCUT SCH (06:43)
[2021-03-16] MEDS: Furosemide 20 MG Tab PO SCH (08:18)
[2021-03-16] MEDS: Tamsulosin 0.4 MG Cap.ER PO SCH (08:18)
[2021-03-16] MEDS: Lactulose Soln 10 GM/15 ML 30 ML UD Cup PO SCH ×3 (08:18→20:48)
[2021-03-16] MEDS: Lisinopril 2.5 MG Tab PO SCH (08:18)
[2021-03-16] MEDS: Rifaximin 550 MG Tab PO SCH ×2 (08:19→20:48)
[2021-03-16] MEDS: Carbidopa/Levodopa 25-250 MG Tab PO SCH ×3 (08:19→20:50)
[2021-03-16] MEDS: Multivitamins with Iron/Calcium/Folic Acid/Minerals Tab PO SCH (08:19)
[2021-03-16] MEDS: Warfarin 2 MG Tab PO SCH (16:07)
[2021-03-16] MEDS: metFORMIN 1,000 MG Tab PO SCH (17:31)
[2021-03-16] MEDS: Melatonin 3 MG Tab PO SCH (20:48)
[2021-03-16] MEDS: Simvastatin 40 MG Tab PO SCH (20:49)
[2021-03-16] MEDS ORDERED: Insulin Glargine,Hum.Rec.Anlog 100 UNIT/ML 3 ML Pen SUBCUT ONE (20:57)
[2021-03-16] MEDS: Insulin Glargine,Hum.Rec.Anlog 100 UNIT/ML 3 ML Pen SUBCUT SCH (21:01)
[2021-03-16] MEDS: diphenhydrAMINE 25 MG Cap PO PRN (21:06)
[2021-03-17] MEDS: Pantoprazole 40 MG Tab.CR PO SCH (06:07)
[2021-03-17] MEDS: Albuterol/Ipratropium 3.0-0.5 MG/3 ML Neb Soln NEB SCH ×2 (06:07→20:14)
[2021-03-17] MEDS: Lactulose Soln 10 GM/15 ML 30 ML UD Cup PO SCH ×3 (08:13→20:35)
[2021-03-17] MEDS: Multivitamins with Iron/Calcium/Folic Acid/Minerals Tab PO SCH (08:14)
[2021-03-17] MEDS: Lisinopril 2.5 MG Tab PO SCH (08:14)
[2021-03-17] MEDS: Tamsulosin 0.4 MG Cap.ER PO SCH (08:14)
[2021-03-17] MEDS: Carbidopa/Levodopa 25-250 MG Tab PO SCH ×3 (08:14→20:35)
[2021-03-17] MEDS: Furosemide 20 MG Tab PO SCH (08:14)
[2021-03-17] MEDS: Rifaximin 550 MG Tab PO SCH ×2 (08:15→20:21)
[2021-03-17] MEDS: Triamcinolone Acetonide 0.1% Oint 15 GM Tube TOP PRN ×2 (08:24→20:30)
[2021-03-17] MEDS ORDERED: Warfarin 2 MG Tab PO SCH (16:00)
[2021-03-17] MEDS: metFORMIN 1,000 MG Tab PO SCH (18:27)
[2021-03-17] MEDS: Simvastatin 40 MG Tab PO SCH (20:21)
[2021-03-17] MEDS: Melatonin 3 MG Tab PO SCH (20:35)
[2021-03-17] MEDS: Insulin Glargine,Hum.Rec.Anlog 100 UNIT/ML 3 ML Pen SUBCUT SCH (21:08)
[2021-03-18] MEDS: Pantoprazole 40 MG Tab.CR PO SCH (05:50)
[2021-03-18] MEDS: Albuterol/Ipratropium 3.0-0.5 MG/3 ML Neb Soln NEB SCH ×2 (05:59→20:35)
[2021-03-18] MEDS: Tamsulosin 0.4 MG Cap.ER PO SCH (08:04)
[2021-03-18] MEDS: Furosemide 20 MG Tab PO SCH (08:04)
[2021-03-18] MEDS: Lactulose Soln 10 GM/15 ML 30 ML UD Cup PO SCH ×3 (08:04→20:34)
[2021-03-18] MEDS: Rifaximin 550 MG Tab PO SCH ×2 (08:05→20:35)
[2021-03-18] MEDS: Multivitamins with Iron/Calcium/Folic Acid/Minerals Tab PO SCH (08:05)
[2021-03-18] MEDS: Carbidopa/Levodopa 25-250 MG Tab PO SCH ×3 (08:05→20:35)
[2021-03-18] MEDS: Lisinopril 2.5 MG Tab PO SCH (08:05)
--- NOTE | 2021-03-18 11:24 | PCM.PN ---
- General Info Date of Service: 03/18/21 Subjective Update: He is feeling good. Had appt with Dr Swain this morning. Dr Swain had talked to him about that he wouldn't be able to live at home needed assisted living either here with his daughter or somewhere with other family, he would not be able to drive anymore and that his life expectancy is around 3-4 years. He said his daughter went with him and she was present when Dr Swain was in the room. He said that Dr Swain said his labs looked good, lungs sounded good. Dr Swain did not change any orders and is referring him to Audiology for hearing test. He is in good spirits currently. Having 3 BMs/day. Progressing well with therapy. [facility] came for dressing change on Monday, his daughter was here yesterday for wound dressing education. Home health, [facility] and his daughter will be doing his dressing changes, they are coming up with schedule amongst themselves as to who is doing which days. Sliding scale was discontinued as he was only using 2 units/day and was not consistent which meal time, sometimes lunch and sometimes he received at dinner. His Semglee dose has been reduced down to 38 units at bedtime. He thinks his tremors are improved with the Parkinson's medications, we have not changed his dose from [facility]. - Patient Data Vitals - Most Recent: Last Vital Signs Temp 98.0 F 03/18/21 07:45 Pulse 98 03/18/21 07:45 Resp 20 03/18/21 07:45 BP 140/66 03/18/21 08:05 Pulse Ox 96 03/18/21 07:45 Weight - Most Recent: 190 lb 2 oz Lab Results Last 24 Hours: Laboratory Results - last 24 hr 03/17/21 03/17/21 03/18/21 Range/Units 17:13 20:41 05:42 PT (9.0-11.1) sec INR (1.00-1.24) POC Glucose 118 H 162 H 82 D (80-116) mg/dL 03/18/21 Range/Units 06:35 PT 27.3 H (9.0-11.1) sec INR 2.70 H (1.00-1.24) POC Glucose (80-116) mg/dL Med Orders - Current: Current Medications Albuterol/Ipratropium (Albuterol/Ipratropium 3.0-0.5 Mg/3 Ml Neb Soln) 3 ml NEB BIDRT [facility] Last Admin: 03/18/21 05:59 Dose: 3 ml Documented by: Albuterol/Ipratropium (Albuterol/Ipratropium 3.0-0.5 Mg/3 Ml Neb Soln) 3 ml NEB Q4H PRN PRN Reason: Shortness of Breath Carbidopa/Levodopa (Carbidopa/Levodopa 25-250 Mg Tab) 1 tab PO TID [facility] Last Admin: 03/18/21 08:05 Dose: 1 tab Documented by: Dextrose/Water (50% Dextrose In Water 50 Ml Syringe) 50 ml IVPUSH ASDIRECTED PRN PRN Reason: Hypoglycemia Diphenhydramine HCl (Diphenhydramine 25 Mg Cap) 25 mg PO QID PRN PRN Reason: Allergies Last Admin: 03/16/21 21:06 Dose: 25 mg Documented by: Furosemide (Furosemide 20 Mg Tab) 20 mg PO DAILY [facility] Last Admin: 03/18/21 08:04 Dose: 20 mg Documented by: Glucagon (Glucagon,Human Recombinant 1 Mg Vial) 1 mg IM ASDIRECTED PRN PRN Reason: Hypoglycemia Insulin Glargine (Insulin Glargine,Hum.Rec.Anlog 100 Unit/Ml 3 Ml Pen) 38 unit SUBCUT BEDTIME [facility] Last Admin: 03/17/21 21:08 Dose: 38 units Documented by: Lactulose (Lactulose Soln 10 Gm/15 Ml 30 Ml Ud Cup) 20 gm PO TID [facility] Last Admin: 03/18/21 08:04 Dose: 20 gm Documented by: Lisinopril (Lisinopril 2.5 Mg Tab) 2.5 mg PO DAILY [facility] Last Admin: 03/18/21 08:05 Dose: 2.5 mg Documented by: Melatonin (Melatonin 3 Mg Tab) 6 mg PO BEDTIME [facility] Last Admin: 03/17/21 20:35 Dose: 6 mg Documented by: Metformin HCl (Metformin 1,000 Mg Tab) 1,000 mg PO WITHDINNER [facility] Last Admin: 03/17/21 18:27 Dose: 1,000 mg Documented by: Multivitamins/Minerals (Multivitamins With Iron/Calcium/Folic Acid/Minerals Tab) 1 tab PO DAILY [facility] Last Admin: 03/18/21 08:05 Dose: 1 tab Documented by: Oxycodone HCl (Oxycodone 5 Mg Tab) 2.5 mg PO BID PRN PRN Reason: Pain Pantoprazole Sodium (Pantoprazole 40 Mg Tab.Cr) 40 mg PO DAILY@0600 [facility] Last Admin: 03/18/21 05:50 Dose: 40 mg Documented by: Rifaximin (Rifaximin 550 Mg Tab) 550 mg PO BID [facility] Last Admin: 03/18/21 08:05 Dose: 550 mg Documented by: Senna/Docusate Sodium (Docusate Sodium/Sennosides 50-8.6 Mg Tab) 2 tab PO BID PRN PRN Reason: Constipation Simvastatin (Simvastatin 40 Mg Tab) 40 mg PO BEDTIME [facility] Last Admin: 03/17/21 20:21 Dose: 40 mg Documented by: Tamsulosin HCl (Tamsulosin 0.4 Mg Cap.Er) 0.4 mg PO PCBREAKFAST [facility] Last Admin: 03/18/21 08:04 Dose: 0.4 mg Documented by: Triamcinolone Acetonide (Triamcinolone Acetonide 0.1% Oint 15 Gm Tube) 0 gm TOP BID PRN PRN Reason: Rash Last Admin: 03/17/21 20:30 Dose: 1 applic Documented by: Warfarin Sodium (Warfarin Sliding Scale) 1 each PO 1600 [facility] Warfarin Sodium (Warfarin 2 Mg Tab) 2 mg PO We@1600 [facility] Last Admin: 03/17/21 16:36 Dose: 2 mg Documented by: Warfarin Sodium (Warfarin 2 Mg Tab) 4 mg PO SuMoTuThFrSa@1600 [facility] Last Admin: 03/16/21 16:07 Dose: 4 mg Documented by: Discontinued Medications Albuterol/Ipratropium (Albuterol/Ipratropium 3.0-0.5 Mg/3 Ml Neb Soln) 3 ml NEB Q4H [facility] Last Admin: 03/08/21 09:11 Dose: 3 ml Documented by: Albuterol/Ipratropium (Albuterol/Ipratropium 3.0-0.5 Mg/3 Ml Neb Soln) 3 ml NEB QIDRT [facility] Last Admin: 03/14/21 10:36 Dose: 3 ml Documented by: Influenza Virus Vaccine (Flu Vacc [id number](6mos Up)/Pf 60 Mcg/0.5 Ml Syringe) 60 mcg IM .ONCE ONE Stop: 03/13/21 09:01 Last Admin: 03/13/21 20:15 Dose: 60 mcg Documented by: Insulin Aspart (Insulin Aspart 100 Units/Ml 3 Ml Pen) 0 unit SUBCUT TIDAC [facility]; Protocol Insulin Glargine (Insulin Glargine,Human Rec. Analog 100 Units/Ml 3 Ml Pen) 60 units SUBCUT Q24H [facility] Last Admin: 03/07/21 14:11 Dose: 60 unit Documented by: Insulin Glargine (Insulin Glargine,Human Rec. Analog 100 Units/Ml 3 Ml Pen) 55 units SUBCUT BEDTIME [facility] Last Admin: 03/08/21 22:32 Dose: Not Given Documented by: Insulin Glargine (Insulin Glargine,Hum.Rec.Anlog 100 Unit/Ml 3 Ml Pen) 55 unit SUBCUT BEDTIME [facility] Last Admin: 03/08/21 22:44 Dose: 55 units Documented by: Insulin Glargine (Insulin Glargine,Hum.Rec.Anlog 100 Unit/Ml 3 Ml Pen) 50 unit SUBCUT BEDTIME [facility] Last Admin: 03/09/21 20:43 Dose: 50 units Documented by: Insulin Glargine (Insulin Glargine,Hum.Rec.Anlog 100 Unit/Ml 3 Ml Pen) 45 unit SUBCUT BEDTIME [facility] Last Admin: 03/10/21 21:13 Dose: 45 units Documented by: Insulin Glargine (Insulin Glargine,Hum.Rec.Anlog 100 Unit/Ml 3 Ml Pen) 42 unit SUBCUT BEDTIME [facility] Last Admin: 03/12/21 20:38 Dose: 42 units Documented by: Insulin Glargine (Insulin Glargine,Hum.Rec.Anlog 100 Unit/Ml 3 Ml Pen) 40 unit SUBCUT BEDTIME [facility] Last Admin: 03/13/21 20:39 Dose: Not Given Documented by: Insulin Glargine (Insulin Glargine,Hum.Rec.Anlog 100 Unit/Ml 3 Ml Pen) 40 unit SUBCUT BEDTIME [facility] Last Admin: 03/16/21 21:01 Dose: 40 units Documented by: Insulin Human Lispro (Insulin Lispro 100 Unit/Ml 3 Ml Kwikpen) 0 unit SUBCUT BEDTIME [facility]; Protocol Last Admin: 03/08/21 22:08 Dose: Not Given Documented by: Insulin Human Lispro (Insulin Lispro 100 Unit/Ml 3 Ml Kwikpen) 0 unit SUBCUT TIDAC [facility]; Protocol Last Admin: 03/16/21 06:43 Dose: Not Given Documented by: Lactulose (Lactulose Soln 10 Gm/15 Ml 30 Ml Ud Cup) 20 gm PO TID PRN PRN Reason: IMPAIRED BRAIN FUNCTION Lactulose (Lactulose Soln 10 Gm/15 Ml 30 Ml Ud Cup) 20 gm PO DAILY [facility] Nystatin (Nystatin Topical Powder 15 Gm Bottle) 0 gm TOP BID [facility] Last Admin: 03/14/21 08:09 Dose: 1 applic Documented by: Warfarin Sodium (Warfarin 2 Mg Tab) 4 mg PO DAILY@1600 [facility] Last Admin: 03/11/21 17:26 Dose: 4 mg Documented by: Warfarin Sodium (Warfarin 2 Mg Tab) 2 mg PO ONETIME ONE Stop: 03/10/21 16:01 Last Admin: 03/10/21 15:26 Dose: 2 mg Documented by: - Exam General: Alert, Oriented, Cooperative, No Acute Distress Lungs: Clear to Auscultation, Normal Respiratory Effort Cardiovascular: Regular Rate, Regular Rhythm GI/Abdominal Exam: Normal Bowel Sounds, Soft, Non-Tender, Distended (unchanged.), Other (Wound see pictures below) Peripheral Pulses: 2+: Radial (L), Radial (R) Psy/Mental Status: Normal Affect, Normal Mood - Patient Data Lab Results Last 24 hrs: Laboratory Results - last 24 hr 03/17/21 03/17/21 03/18/21 Range/Units 17:13 20:41 05:42 PT (9.0-11.1) sec INR (1.00-1.24) POC Glucose 118 H 162 H 82 D (80-116) mg/dL 03/18/21 Range/Units 06:35 PT 27.3 H (9.0-11.1) sec INR 2.70 H (1.00-1.24) POC Glucose (80-116) mg/dL Imaging Impressions Last 24 hrs: Wound pictures: Top 4 cm x 2 cm x 1 cm; Bottom: 3 cm x 1 cm x 4 cm Sepsis Event Note - Evaluation Sepsis Screening Result: No Definite Risk - Focused Exam Vital Signs: Vital Signs Temp Pulse Pulse Resp BP BP Pulse Ox 03/18/21 08:05 140/66 03/18/21 07:45 98.0 F 98 20 140/66 96 03/18/21 06:00 94 - Problem List & Annotations (1) Weakness SNOMED Code(s): 81771578 Code(s): R53.1 - WEAKNESS Status: Acute Current Visit: Yes Annotation/Comment:: improving (2) Superior mesenteric artery thrombosis SNOMED Code(s): 732757661 Code(s): K55.069 - ACUTE INFARCTION OF INTESTINE, PART AND EXTENT UNSPECIFIED Status: Acute Current Visit: Yes Onset Date: ~02/06/21 (3) Wound dehiscence, surgical SNOMED Code(s): 283428311 Code(s): T81.31XA - DISRUPTION OF EXTERNAL OPERATION (SURGICAL) WOUND, NEC, INIT Status: Acute Current Visit: Yes Qualifiers: Encounter type: subsequent encounter Qualified Code(s): T81.31XD - Disruption of external operation (surgical) wound, not elsewhere classified, subsequent encounter Annotation/Comment:: Daily wet to dry packing of wound. No signs of infection, healing well. Last hermila removed today. (4) Cryptogenic cirrhosis SNOMED Code(s): 17818789 Code(s): K74.69 - OTHER CIRRHOSIS OF LIVER Status: Acute Current Visit: Yes (5) Malnutrition SNOMED Code(s): 01352247 Code(s): E46 - UNSPECIFIED PROTEIN-CALORIE MALNUTRITION Status: Acute Current Visit: Yes Qualifiers: Malnutrition type: protein-calorie malnutrition Annotation/Comment:: improving (6) S/P exploratory laparotomy SNOMED Code(s): 403923573, 48541215, 219237254 Code(s): Z98.890 - OTHER SPECIFIED POSTPROCEDURAL STATES Status: Acute Current Visit: Yes Onset Date: ~02/08/21 Annotation/Comment:: 02/07 & 02/08 removed 100 cm of jejunum due to ischemia (7) S/P small bowel resection SNOMED Code(s): 323517394884629, 598930054, 524474582436757 Code(s): Z90.49 - ACQUIRED ABSENCE OF OTHER SPECIFIED PARTS OF DIGESTIVE TRACT Status: Acute Current Visit: Yes Annotation/Comment:: 100 cm of jejunum removed secondary to ischemia (8) Ascites SNOMED Code(s): 375613796 Code(s): R18.8 - OTHER ASCITES Status: Chronic Current Visit: Yes Qualifiers: 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 Qualified Code(s): 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 They are repeating his ultrasound in 6 months. 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 Weakness/deconditioning: PT/OT continue. 2. SMA thrombosis/s/p laparotomy: INR 2.7, pharmacy to dose, Wound care: midline abdomen open wounds x 2, Pack with saline moistened Kerlix & then cover with gauze, improving(see images). Lifting restrictions of 15 pounds until 03/27/2021. 3. Cirrhosis/hepatic encephalopathy/ascites/malnutrition: Rifaximin 550 mg bid, Lactulose 20 g tid to have 3 BM/day. Lasix [address] Herrmann consulted on Monday, removed half of hermila, continue wound care dressings as ordered. Did not feel he needed paracentesis at this time. Abdominal limited ultrasound showed cirrhosis & no RUQ ascites. 4. DM: well controlled, Semglee 38 units at bedtime. Glucose checks qidac&hs. 5. Disposition: Discharge to [facility] with [facility] services with PT/OT on Friday 03/23, Will need Covid & Mantoux on am.
[2021-03-18] MEDS: Warfarin 2 MG Tab PO SCH (15:48)
[2021-03-18] MEDS: metFORMIN 1,000 MG Tab PO SCH (17:29)
[2021-03-18] MEDS: Melatonin 3 MG Tab PO SCH (20:35)
[2021-03-18] MEDS: Simvastatin 40 MG Tab PO SCH (20:36)
[2021-03-18] MEDS: Insulin Glargine,Hum.Rec.Anlog 100 UNIT/ML 3 ML Pen SUBCUT SCH (20:38)
[2021-03-19] MEDS: Pantoprazole 40 MG Tab.CR PO SCH (06:36)
[2021-03-19] MEDS: Albuterol/Ipratropium 3.0-0.5 MG/3 ML Neb Soln NEB SCH ×2 (06:37→20:31)
[2021-03-19] MEDS: Lactulose Soln 10 GM/15 ML 30 ML UD Cup PO SCH ×3 (09:25→20:34)
[2021-03-19] MEDS: Furosemide 20 MG Tab PO SCH (09:26)
[2021-03-19] MEDS: Tamsulosin 0.4 MG Cap.ER PO SCH (09:26)
[2021-03-19] MEDS: Lisinopril 2.5 MG Tab PO SCH (09:27)
[2021-03-19] MEDS: Carbidopa/Levodopa 25-250 MG Tab PO SCH ×3 (09:27→20:33)
[2021-03-19] MEDS: Rifaximin 550 MG Tab PO SCH ×2 (09:28→20:34)
[2021-03-19] MEDS: Multivitamins with Iron/Calcium/Folic Acid/Minerals Tab PO SCH (09:28)
[2021-03-19] MEDS: Warfarin 2 MG Tab PO SCH (16:49)
[2021-03-19] MEDS: metFORMIN 1,000 MG Tab PO SCH (17:56)
[2021-03-19] MEDS: Melatonin 3 MG Tab PO SCH (20:31)
[2021-03-19] MEDS: Insulin Glargine,Hum.Rec.Anlog 100 UNIT/ML 3 ML Pen SUBCUT SCH (20:32)
[2021-03-19] MEDS: Simvastatin 40 MG Tab PO SCH (20:34)
[2021-03-20] MEDS: Pantoprazole 40 MG Tab.CR PO SCH (06:12)
[2021-03-20] MEDS: Albuterol/Ipratropium 3.0-0.5 MG/3 ML Neb Soln NEB SCH ×2 (06:13→20:21)
[2021-03-20] MEDS: Rifaximin 550 MG Tab PO SCH ×2 (08:21→20:21)
[2021-03-20] MEDS: Lactulose Soln 10 GM/15 ML 30 ML UD Cup PO SCH ×3 (08:21→20:22)
[2021-03-20] MEDS: Carbidopa/Levodopa 25-250 MG Tab PO SCH ×3 (08:21→20:21)
[2021-03-20] MEDS: Lisinopril 2.5 MG Tab PO SCH (08:22)
[2021-03-20] MEDS: Furosemide 20 MG Tab PO SCH (08:22)
[2021-03-20] MEDS: Tamsulosin 0.4 MG Cap.ER PO SCH (08:23)
[2021-03-20] MEDS: Multivitamins with Iron/Calcium/Folic Acid/Minerals Tab PO SCH (08:23)
[2021-03-20] MEDS: Warfarin 2 MG Tab PO SCH (16:15)
[2021-03-20] MEDS: metFORMIN 1,000 MG Tab PO SCH (17:53)
[2021-03-20] MEDS: Simvastatin 40 MG Tab PO SCH (20:21)
[2021-03-20] MEDS: Melatonin 3 MG Tab PO SCH (20:21)
[2021-03-20] MEDS: Insulin Glargine,Hum.Rec.Anlog 100 UNIT/ML 3 ML Pen SUBCUT SCH (20:22)
[2021-03-20] MEDS: diphenhydrAMINE 25 MG Cap PO PRN (20:32)
[2021-03-21] MEDS: Pantoprazole 40 MG Tab.CR PO SCH (06:23)
[2021-03-21] MEDS: Albuterol/Ipratropium 3.0-0.5 MG/3 ML Neb Soln NEB SCH ×2 (06:23→20:10)
[2021-03-21] MEDS: Lactulose Soln 10 GM/15 ML 30 ML UD Cup PO SCH ×3 (09:34→20:10)
[2021-03-21] MEDS: Multivitamins with Iron/Calcium/Folic Acid/Minerals Tab PO SCH (09:34)
[2021-03-21] MEDS: Tamsulosin 0.4 MG Cap.ER PO SCH (09:34)
[2021-03-21] MEDS: Rifaximin 550 MG Tab PO SCH ×2 (09:34→20:11)
[2021-03-21] MEDS: Carbidopa/Levodopa 25-250 MG Tab PO SCH ×3 (09:35→20:11)
[2021-03-21] MEDS: Lisinopril 2.5 MG Tab PO SCH (09:35)
[2021-03-21] MEDS: Furosemide 20 MG Tab PO SCH (09:37)
[2021-03-21] MEDS: diphenhydrAMINE 25 MG Cap PO PRN ×2 (09:45→20:11)
[2021-03-21] MEDS: Warfarin 2 MG Tab PO SCH (16:08)
[2021-03-21] MEDS: metFORMIN 1,000 MG Tab PO SCH (17:20)
[2021-03-21] MEDS: Melatonin 3 MG Tab PO SCH (20:10)
[2021-03-21] MEDS: Insulin Glargine,Hum.Rec.Anlog 100 UNIT/ML 3 ML Pen SUBCUT SCH (20:11)
[2021-03-21] MEDS: Simvastatin 40 MG Tab PO SCH (20:18)
[2021-03-21] MEDS: Triamcinolone Acetonide 0.1% Oint 15 GM Tube TOP PRN (20:53)
[2021-03-22] MEDS: Pantoprazole 40 MG Tab.CR PO SCH (06:18)
[2021-03-22] MEDS: diphenhydrAMINE 25 MG Cap PO PRN ×2 (06:18→17:23)
[2021-03-22] MEDS: Albuterol/Ipratropium 3.0-0.5 MG/3 ML Neb Soln NEB SCH ×2 (06:18→20:48)
[2021-03-22] MEDS: Lactulose Soln 10 GM/15 ML 30 ML UD Cup PO SCH ×3 (08:23→20:47)
[2021-03-22] MEDS: Tamsulosin 0.4 MG Cap.ER PO SCH (08:24)
[2021-03-22] MEDS: Furosemide 20 MG Tab PO SCH (08:25)
[2021-03-22] MEDS: Lisinopril 2.5 MG Tab PO SCH (08:25)
[2021-03-22] MEDS: Rifaximin 550 MG Tab PO SCH ×2 (08:26→20:49)
[2021-03-22] MEDS: Carbidopa/Levodopa 25-250 MG Tab PO SCH ×3 (08:26→20:48)
[2021-03-22] MEDS: Multivitamins with Iron/Calcium/Folic Acid/Minerals Tab PO SCH (08:26)
[2021-03-22] MEDS: Warfarin 2 MG Tab PO SCH (17:21)
[2021-03-22] MEDS: metFORMIN 1,000 MG Tab PO SCH (17:21)
[2021-03-22] MEDS: Melatonin 3 MG Tab PO SCH (20:48)
[2021-03-22] MEDS: Simvastatin 40 MG Tab PO SCH (20:50)
[2021-03-22] MEDS: Insulin Glargine,Hum.Rec.Anlog 100 UNIT/ML 3 ML Pen SUBCUT SCH (20:52)
[2021-03-22] MEDS: Triamcinolone Acetonide 0.1% Oint 15 GM Tube TOP PRN (21:00)
[2021-03-23] MEDS: diphenhydrAMINE 25 MG Cap PO PRN ×2 (02:25→08:30)
[2021-03-23] MEDS: Albuterol/Ipratropium 3.0-0.5 MG/3 ML Neb Soln NEB SCH (06:55)
[2021-03-23] MEDS: Pantoprazole 40 MG Tab.CR PO SCH (06:55)
[2021-03-23] MEDS ORDERED: Tuberculin, PPD 5 Units/0.1 ML 1 ML MDV IDERM ONE (08:00)
[2021-03-23] MEDS: Tamsulosin 0.4 MG Cap.ER PO SCH (08:46)
[2021-03-23] MEDS: Lactulose Soln 10 GM/15 ML 30 ML UD Cup PO SCH (08:46)
[2021-03-23] MEDS: Furosemide 20 MG Tab PO SCH (08:46)
[2021-03-23] MEDS: Carbidopa/Levodopa 25-250 MG Tab PO SCH (08:47)
[2021-03-23] MEDS: Rifaximin 550 MG Tab PO SCH (08:47)
[2021-03-23] MEDS: Lisinopril 2.5 MG Tab PO SCH (08:48)
[2021-03-23] MEDS: Multivitamins with Iron/Calcium/Folic Acid/Minerals Tab PO SCH (08:48)
--- NOTE | 2021-03-23 19:27 | PCM.DCSUM1 ---
Discharge Summary - Hospital Course Free Text/Narrative:: Patient was treated with occupational physical therapy. He was seen by general surgery while he was here. A plan was put in place for him to go to assisted living so that he could be near family here in town. He still has open abdominal wounds but he has progressed well and is ready for discharge at this time. See consult for surgical care of his open abdominal wound. He will be followed by Dr. Swain as his local primary care physician. Noted the patient has developed a significant rash. The rash covers most of his body at this point in time and is extremely pruritic. This rash appears to be wheals. This is classic for some sort of allergic reaction such as to medication. Patient of the timing of the rash shows that the patient had some rash prior to leaving [facility]. It is not unlikely that the patient's rash may be secondary to treatment with warfarin. However, patient will need to follow-up with primary care to try to determine the source of the rash and to eliminate the offending agents. He initially had good relief with diphenhydramine but the rash seems to be getting worse over the last 2 days. HPI Initial Comments: Ed presents for swing bed admission for deconditioning and weakness after prolonged hospitalization in [facility] in [place]. 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 He also had acute kidney injury(SHAYNA)-resolved, Decompensated cirrhosis, hepatic encephalopathy- improved, acute liver injury, hyponatremia, incision infection completed antibiotic course, hypertension, possible Parkinson's disease; hyperkalemia resolved, Maculopapular rash resolved, dermatology felt was drug eruption secondary to antibiotics, TMC cream bid to affected areas, Bowel ischemia resolved. Hematology did full workup for Factor V Leiden, Antiphospholipid syndrome antibodies, Myeloproliferative panel and all tests came back negative. He has been treated for SMA thrombosis with Warfarin 4 mg daily, INR today was 2.6, 03/04 INR was 2.4. Pharmacy was dosing to keep INR goal between 2-3. He was given Rifaximin 550 mg bid in addition to Lactulose 20 g tid as needed titrating to keep 3 BM/day. His cognition improved with this and has not had ammonia level for over a week due to improved mental status. He did not have paracentesis for ascites while at [facility] as he had open abdominal incision and drain tube in place, they were getting large amounts of drainage out and drain was pulled 02/28 and then ostomy bag was placed to collect drainage, this was discontinued 03/04 and has had minimal drainage since bag removed. General surgery recommended follow up with our general surgery if needed for therapeutic paracentesis if his abdomen becomes more distended and painful. Wound care: midline abdomen open wounds x 2, Pack with saline moistened Kerlix & then cover with gauze. LUQ drain site: dressing gauze. Lifting restrictions of 15 pounds until 03/27/2021. His daughter lives in [place] so family had requested swing bed here and plan is for him to return to [place], [place] to his home once improved functional status. Diagnosis: Stroke: No - Discharge Data Discharge Date: 03/23/21 Discharge Disposition: Home, Home Health Agency Condition: Fair - Referral to Home Health Date of Face to Face Encounter: 03/23/21 Reason for Homebound Status: weakness Primary Care Physician: PCP Not In Area Skilled Need: PT/OT - Discharge Diagnosis/Problem(s) (1) Cryptogenic cirrhosis SNOMED Code(s): 94754026 ICD Code: K74.69 - OTHER CIRRHOSIS OF LIVER Status: Acute (2) Malnutrition SNOMED Code(s): 71963307 ICD Code: E46 - UNSPECIFIED PROTEIN-CALORIE MALNUTRITION Status: Acute Problem Details: improving Qualifiers: Malnutrition type: protein-calorie malnutrition (3) S/P exploratory laparotomy SNOMED Code(s): 625528900, 38958668, 959044466 ICD Code: Z98.890 - OTHER SPECIFIED POSTPROCEDURAL STATES Status: Acute Onset Date: ~02/08/21 Problem Details: 02/07 & 02/08 removed 100 cm of jejunum due to ischemia (4) S/P small bowel resection SNOMED Code(s): 701246160837741, 283836957, 715248895108282 ICD Code: Z90.49 - ACQUIRED ABSENCE OF OTHER SPECIFIED PARTS OF DIGESTIVE TRACT Status: Acute Problem Details: 100 cm of jejunum removed secondary to ischemia (5) Superior mesenteric artery thrombosis SNOMED Code(s): 582222559 ICD Code: K55.069 - ACUTE INFARCTION OF INTESTINE, PART AND EXTENT UNS PECIFIED Status: Acute Onset Date: ~02/06/21 (6) Weakness SNOMED Code(s): 51509071 ICD Code: R53.1 - WEAKNESS Status: Acute Problem Details: improving (7) Wound dehiscence, surgical SNOMED Code(s): 836531281 ICD Code: T81.31XA - DISRUPTION OF EXTERNAL OPERATION (SURGICAL) WOUND, NEC, INIT Status: Acute Problem Details: Daily wet to dry packing of wound. No signs of infection, healing well. Last hermila removed today. Qualifiers: Encounter type: subsequent encounter Qualified Code(s): T81.31XD - Disruption of external operation (surgical) wound, not elsewhere classified, subsequent encounter (8) Ascites SNOMED Code(s): 782643747 ICD Code: R18.8 - OTHER ASCITES Status: Chronic Problem Details: Paracentesis as needed, abdominal limited ultrasound ordered by [facility] showed cirrhosis but no ascites in RUQ. They are repeating his ultrasound in 6 months. 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 OT Reason for Consult: ADL's This query below is only for informational purposes and is not editable. PT Evaluation and Treatment [CONS] Routine Please Evaluate and Treat. PT Reason for Consult: Strengthening This query below is only for informational purposes and is not editable. 03/09/21 07:51 Consult to Speech Language Pathology [FUR DRUMMER Evaluation and Treatment] [CONS] Erika wood Please Evaluate and Treat FUR DRUMMER Reason for Consult: Speech Language Cognitive This query below is only for informational purposes and is not editable. Admission Diagnosis/Problem: Weakness 03/15/21 07:00 Consult to Physician [CONS] Routine Consulting Provider: Juan Jose Herrmann Call Completed to Consulting Physician: Yes Reason for Consult: midline incision s/p laparotomy Date Notified: 03/13/21 Time Notified: 12:00 - Discharge Plan *PRESCRIPTION DRUG MONITORING PROGRAM REVIEWED*: Not Applicable *COPY OF PRESCRIPTION DRUG MONITORING REPORT IN PATIENT JUAN: Not Applicable Prescriptions/Med Rec: Melatonin 3 mg PO BEDTIME #30 capsule Insulin Degludec [Tresiba Flextouch U-100] 38 unit SQ BEDTIME #12 pen Home Medications: Home Meds Albuterol/Ipratropium [DuoNeb 3.0-0.5 MG/3 ML] 3 ml NEB Q4H PRN 03/05/21 [History] Carbidopa/Levodopa [Sinemet 25-250 MG] 1 tab PO TID 03/05/21 [History] Docusate Sodium/Sennosides [Senokot-S] 2 each PO BID PRN 03/05/21 [History] Furosemide [Lasix] 20 mg PO DAILY 03/05/21 [History] Lactulose [Kristalose] 20 gm PO TID 03/05/21 [History] Multivitamins/Min/Ca/FA/Iron [Thera-M] 1 each PO DAILY 03/05/21 [History] Nystatin 1 applic TOP BID PRN 03/05/21 [History] Pantoprazole Sodium [Protonix] 40 mg PO DAILY 03/05/21 [History] Rifaximin [Xifaxan] 550 mg PO BID 03/05/21 [History] Simvastatin 40 mg PO BEDTIME 03/05/21 [History] Tamsulosin [Flomax] 0.4 mg PO PCBREAKFAST 03/05/21 [History] Triamcinolone Acetonide [Triamcinolone Acetonide 0.1% Oint] 15 gm TOP BID PRN 03/05/21 [History] diphenhydrAMINE [Benadryl] 25 mg PO QID 03/05/21 [History] lisinopriL [Lisinopril] 2.5 mg PO DAILY 03/05/21 [History] metFORMIN [Glucophage] 1,000 mg PO WITHDINNER 03/05/21 [History] Insulin Degludec [Tresiba Flextouch U-100] 38 unit SQ BEDTIME #12 pen 03/23/21 [Rx] Melatonin 3 mg PO BEDTIME #30 capsule 03/23/21 [Rx] Warfarin [Coumadin] 2 mg PO We@1600 tablet 03/23/21 [Rx] Warfarin [Coumadin] 4 mg PO SUMOTUTHFRSA@1600 03/23/21 [History] Patient Handouts: Fall Prevention in Hospitals, Adult, Venous Thromboembolism Prevention - Discharge Summary/Plan Comment DC Time >30 min.: Yes Total # of Minutes for Discharge Time: 50 Discharge Summary/Plan Comment: Patient discharged to assisted living with home health, OT/PT. Patient's family member and home health nurse have been trained to repack and dress his ab dominal wounds properly. Patient will need to follow-up with primary care as soon as practicable. As stated above patient has a rash that is spread to cover large portions of his body and is pruritic. He initially had good relief with diphenhydramine but the rash has been spreading over the last 2 days. Discussion regarding the timing of the rash is that it is quite possible that warfarin may be the offending agent. However there are other possibilities. Note that the rash was likely present prior to transfer to this facility from [facility]. The significance of the rash being present is that it is likely a medication that was started prior to transfer. Would include rifaximin, warfarin. The patient was on lactulose prior to admission to [facility]. Review of records from [facility] shows that the patient had a similar rash eruption when started on Zosyn. He does have a known penicillin allergy. Zosyn was stopped and the rash seemed to go away but not completely. - General Info Date of Service: 03/23/21 Admission Dx/Problem (Free Text: Admission Diagnosis/Problem Admission Diagnosis/Problem Weakness Subjective Update: Patient states that he feels well today and he is ready for discharge, he has no acute complaints at this time - Review of Systems General: Reports: No Symptoms HEENT: Reports: No Symptoms Pulmonary: Reports: No Symptoms Cardiovascular: Reports: No Symptoms Gastrointestinal: Reports: Abdominal Pain, Decreased Appetite Genitourinary: Reports: No Symptoms Musculoskeletal: Reports: No Symptoms Skin: Reports: Pruritis, Rash Neurological: Reports: No Symptoms Psychiatric: Reports: No Symptoms - Patient Data Vitals - Most Recent: Last Vital Signs Temp 37.1 C 03/23/21 07:00 Pulse 87 03/23/21 07:05 Resp 20 03/23/21 07:00 BP 172/64 H 03/23/21 08:48 Pulse Ox 95 03/23/21 07:00 Weight - Most Recent: 86.863 kg Lab Results - Last 24 hrs: Laboratory Results - last 24 hr 03/22/21 03/23/21 03/23/21 Range/Units 22:44 05:50 06:54 POC Glucose 133 H 94 (80-116) mg/dL SARS-CoV-2 RNA (KATHERINE) Negative (NEGATIVE) Med Orders - Current: Current Medications Discontinued Medications Albuterol/Ipratropium (Albuterol/Ipratropium 3.0-0.5 Mg/3 Ml Neb Soln) 3 ml NEB Q4H [facility] Last Admin: 03/08/21 09:11 Dose: 3 ml Documented by: Albuterol/Ipratropium (Albuterol/Ipratropium 3.0-0.5 Mg/3 Ml Neb Soln) 3 ml NEB QIDRT [facility] Last Admin: 03/14/21 10:36 Dose: 3 ml Documented by: Albuterol/Ipratropium (Albuterol/Ipratropium 3.0-0.5 Mg/3 Ml Neb Soln) 3 ml NEB BIDRT [facility] Last Admin: 03/23/21 06:55 Dose: 3 ml Documented by: Albuterol/Ipratropium (Albuterol/Ipratropium 3.0-0.5 Mg/3 Ml Neb Soln) 3 ml NEB Q4H PRN PRN Reason: Shortness of Breath Carbidopa/Levodopa (Carbidopa/Levodopa 25-250 Mg Tab) 1 tab PO TID [facility] Last Admin: 03/23/21 08:47 Dose: 1 tab Documented by: Dextrose/Water (50% Dextrose In Water 50 Ml Syringe) 50 ml IVPUSH ASDIRECTED PRN PRN Reason: Hypoglycemia Diphenhydramine HCl (Diphenhydramine 25 Mg Cap) 25 mg PO QID PRN PRN Reason: Allergies Last Admin: 03/23/21 02:25 Dose: 25 mg Documented by: Furosemide (Furosemide 20 Mg Tab) 20 mg PO DAILY [facility] Last Admin: 03/23/21 08:46 Dose: 20 mg Documented by: Glucagon (Glucagon,Human Recombinant 1 Mg Vial) 1 mg IM ASDIRECTED PRN PRN Reason: Hypoglycemia Influenza Virus Vaccine (Flu Vacc [id number](6mos Up)/Pf 60 Mcg/0.5 Ml Syringe) 60 mcg IM .ONCE ONE Stop: 03/13/21 09:01 Last Admin: 03/13/21 20:15 Dose: 60 mcg Documented by: Insulin Aspart (Insulin Aspart 100 Units/Ml 3 Ml Pen) 0 unit SUBCUT TIDAC SYLVIE; Protocol Insulin Glargine (Insulin Glargine,Human Rec. Analog 100 Units/Ml 3 Ml Pen) 60 units SUBCUT Q24H [facility] Last Admin: 03/07/21 14:11 Dose: 60 unit Documented by: Insulin Glargine (Insulin Glargine,Human Rec. Analog 100 Units/Ml 3 Ml Pen) 55 units SUBCUT BEDTIME SYLVIE Last Admin: 03/08/21 22:32 Dose: Not Given Documented by: Insulin Glargine (Insulin Glargine,Hum.Rec.Anlog 100 Unit/Ml 3 Ml Pen) 55 unit SUBCUT BEDTIME [facility] Last Admin: 03/08/21 22:44 Dose: 55 units Documented by: Insulin Glargine (Insulin Glargine,Hum.Rec.Anlog 100 Unit/Ml 3 Ml Pen) 50 unit SUBCUT BEDTIME SYLVIE Last Admin: 03/09/21 20:43 Dose: 50 units Documented by: Insulin Glargine (Insulin Glargine,Hum.Rec.Anlog 100 Unit/Ml 3 Ml Pen) 45 unit SUBCUT BEDTIME SYLV[facility] Last Admin: 03/10/21 21:13 Dose: 45 units Documented by: Insulin Glargine (Insulin Glargine,Hum.Rec.Anlog 100 Unit/Ml 3 Ml Pen) 42 unit SUBCUT BEDTIME [facility] Last Admin: 03/12/21 20:38 Dose: 42 units Documented by: Insulin Glargine (Insulin Glargine,Hum.Rec.Anlog 100 Unit/Ml 3 Ml Pen) 40 unit SUBCUT BEDTIME [facility] Last Admin: 03/13/21 20:39 Dose: Not Given Documented by: Insulin Glargine (Insulin Glargine,Hum.Rec.Anlog 100 Unit/Ml 3 Ml Pen) 40 unit SUBCUT BEDTIME [facility] Last Admin: 03/16/21 21:01 Dose: 40 units Documented by: Insulin Glargine (Insulin Glargine,Hum.Rec.Anlog 100 Unit/Ml 3 Ml Pen) 38 unit SUBCUT BEDTIME [facility] Last Admin: 03/22/21 20:52 Dose: 38 units Documented by: Insulin Human Lispro (Insulin Lispro 100 Unit/Ml 3 Ml Kwikpen) 0 unit SUBCUT BEDTIME [facility]; Protocol Last Admin: 03/08/21 22:08 Dose: Not Given Documented by: Insulin Human Lispro (Insulin Lispro 100 Unit/Ml 3 Ml Kwikpen) 0 unit SUBCUT TIDAC [facility]; Protocol Last Admin: 03/16/21 06:43 Dose: Not Given Documented by: Lactulose (Lactulose Soln 10 Gm/15 Ml 30 Ml Ud Cup) 20 gm PO TID PRN PRN Reason: IMPAIRED BRAIN FUNCTION Lactulose (Lactulose Soln 10 Gm/15 Ml 30 Ml Ud Cup) 20 gm PO DAILY [facility] Lactulose (Lactulose Soln 10 Gm/15 Ml 30 Ml Ud Cup) 20 gm PO TID [facility] Last Admin: 03/23/21 08:46 Dose: 20 gm Documented by: Lisinopril (Lisinopril 2.5 Mg Tab) 2.5 mg PO DAILY [facility] Last Admin: 03/23/21 08:48 Dose: 2.5 mg Documented by: Melatonin (Melatonin 3 Mg Tab) 6 mg PO BEDTIME [facility] Last Admin: 03/22/21 20:48 Dose: 6 mg Documented by: Metformin HCl (Metformin 1,000 Mg Tab) 1,000 mg PO WITHDINNER [facility] Last Admin: 03/22/21 17:21 Dose: 1,000 mg Documented by: Multivitamins/Minerals (Multivitamins With Iron/Calcium/Folic Acid/Minerals Tab) 1 tab PO DAILY [facility] Last Admin: 03/23/21 08:48 Dose: 1 tab Documented by: Nystatin (Nystatin Topical Powder 15 Gm Bottle) 0 gm TOP BID [facility] Last Admin: 03/14/21 08:09 Dose: 1 applic Documented by: Oxycodone HCl (Oxycodone 5 Mg Tab) 2.5 mg PO BID PRN PRN Reason: Pain Pantoprazole Sodium (Pantoprazole 40 Mg Tab.Cr) 40 mg PO DAILY@0600 [facility] Last Admin: 03/23/21 06:55 Dose: 40 mg Documented by: Rifaximin (Rifaximin 550 Mg Tab) 550 mg PO BID [facility] Last Admin: 03/23/21 08:47 Dose: 550 mg Documented by: Senna/Docusate Sodium (Docusate Sodium/Sennosides 50-8.6 Mg Tab) 2 tab PO BID P RN PRN Reason: Constipation Simvastatin (Simvastatin 40 Mg Tab) 40 mg PO BEDTIME [facility] Last Admin: 03/22/21 20:50 Dose: 40 mg Documented by: Tamsulosin HCl (Tamsulosin 0.4 Mg Cap.Er) 0.4 mg PO PCBREAKFAST [facility] Last Admin: 03/23/21 08:46 Dose: 0.4 mg Documented by: Triamcinolone Acetonide (Triamcinolone Acetonide 0.1% Oint 15 Gm Tube) 0 gm TOP BID PRN PRN Reason: Rash Last Admin: 03/22/21 21:00 Dose: 1 applic Documented by: Tuberculin PPD (Tuberculin, Ppd 5 Units/0.1 Ml 1 Ml Mdv) 5 unit IDERM ONETIME ONE Stop: 03/23/21 08:01 Last Admin: 03/23/21 08:45 Dose: 5 unit Documented by: Warfarin Sodium (Warfarin 2 Mg Tab) 4 mg PO DAILY@1600 [facility] Last Admin: 03/11/21 17:26 Dose: 4 mg Documented by: Warfarin Sodium (Warfarin Sliding Scale) 1 each PO 1600 [facility] Warfarin Sodium (Warfarin 2 Mg Tab) 2 mg PO ONETIME ONE Stop: 03/10/21 16:01 Last Admin: 03/10/21 15:26 Dose: 2 mg Documented by: Warfarin Sodium (Warfarin 2 Mg Tab) 2 mg PO We@1600 [facility] Last Admin: 03/17/21 16:36 Dose: 2 mg Documented by: Warfarin Sodium (Warfarin 2 Mg Tab) 4 mg PO SuMoTuThFrSa@1600 [facility] Last Admin: 03/22/21 17:21 Dose: 4 mg Documented by: Comments:: Patient was awake and lying in bed when I entered the room. He was able to stand up next to the bed with minimal help. - Exam Quality Assessment: Reports: Supplemental Oxygen, DVT Prophylaxis General: Reports: Alert, Oriented, Cooperative, No Acute Distress HEENT: Reports: EOMI Neck: Reports: Supple Lungs: Reports: Clear to Auscultation Cardiovascular: Reports: Regular Rate, Regular Rhythm GI/Abdominal Exam: Normal Bowel Sounds, Distended, Other (Surgical dressing in place over the midline) Back Exam: Reports: Normal Inspection Extremities: Pedal Edema Wound/Incisions: Reports: Dressing Dry and Intact Neurological: Reports: No New Focal Deficit Psy/Mental Status: Reports: Alert, Normal Affect, Normal Mood *Q Meaningful Use (DIS) - VTE *Q VTE Mechanical Contraindications *Q: At Risk for Falls
== END 2021-03-23 10:13 | disposition home health service (06) | DRG 948 ==
LOC: FB.MS 15:36
PROVIDERS: ADMIT Family Medicine; ATTEND Student in an Organized Health Care Education/Training Program
DX: R53.1 Weakness (principal); E46 Unspecified protein-calorie malnutrition; Z98.890 Other specified postprocedural states; Z90.49 Acquired absence of other specified parts of digestive tract; T81.31XD Disruption of external operation (surgical) wound, not elsewhere classified, subsequent encounter; K70.31 Alcoholic cirrhosis of liver with ascites; K72.90 Hepatic failure, unspecified without coma; E11.9 Type 2 diabetes mellitus without complications; I10 Essential (primary) hypertension; G20 Parkinson's disease; R21 Rash and other nonspecific skin eruption; Z88.0 Allergy status to penicillin; Z79.84 Long term (current) use of oral hypoglycemic drugs; Z79.01 Long term (current) use of anticoagulants; Z79.4 Long term (current) use of insulin
CPT/HCPCS: 36415; 76705; 82140; 82947; 85610; 86580; 90686; 94640; 96125-GN; 97110-GO; 97116-GP; 97129-GN; 97130-GN; 97161-GP; 97165-GO; 97530-GO; 97530-GP; 97535-GO; A9270-GY; G0008; J1815; J1815-GY; J7620-GY; U0002

== ENCOUNTER 2021-06-07 15:11 | Emergency (ER) | payer MEDICARE, BC ==
[2021-06-07] MEDS ORDERED: Sodium Chloride 0.9% 10 ML Syringe FLUSH PRN ×2 (15:16→15:32)
[2021-06-07] MEDS ORDERED: Metolazone 2.5 MG Tab PO STA (15:32)
[2021-06-07] MEDS ORDERED: Furosemide 40 MG/4 ML VIAL IVPUSH ONE (15:32)
== END 2021-06-07 17:00 | disposition home or self-care (01) ==
LOC: FB.ED 15:11
DX: K74.60 Unspecified cirrhosis of liver (principal); R18.8 Other ascites; J44.9 Chronic obstructive pulmonary disease, unspecified; E11.9 Type 2 diabetes mellitus without complications; E66.9 Obesity, unspecified; Z68.30 Body mass index [BMI] 30.0-30.9, adult; Z88.0 Allergy status to penicillin; Z79.01 Long term (current) use of anticoagulants; Z79.4 Long term (current) use of insulin; Z79.899 Other long term (current) drug therapy
CPT/HCPCS: 36415; 80053; 85025; 85610; 96374; 99282; 99283-25; A9270-GY; J1940